=== PATIENT | male | born 1940 | race Caucasian/White ===

== ENCOUNTER 2020-01-24 14:34 | Emergency (ER) | payer MEDICARE, OTHER, SELFPAY ==
[2020-01-24 14:43] VITALS: BP 178/81; PULSE 66; RESP 18; TEMP 36.4; O2SAT 97; BMI 34.7
--- NOTE | 2020-01-24 14:57 | DI.RAD.S_ITS ---
PROCEDURE: XR LUMBAR SPINE 2-3V INDICATIONS: low back pain TECHNIQUE: 3 views of the lumbar spine were acquired. COMPARISON: [facility], , L-SPINE 2-3 VIEWS, 12/20/2015, 13:09. FINDINGS: Bones: 5 [id number] vertebrae are present. There is normal bony alignment. No vertebral body compression fractures. No suspicious bony lesions. Posterior fusion of L4-L5 is present, as before. Multilevel disc space narrowing and endplate osteophyte formation. Multilevel facet hypertrophy. Soft tissues: Overlying bowel gas pattern is normal. No suspicious soft tissue calcifications. IMPRESSION: 1. Postsurgical sequelae. 2. Multilevel degenerative disc and facet disease. 3. No acute fracture. No osseous lesion. If symptoms and/or clinical suspicion for pathology persist, further assessment with repeat, or advanced imaging (e.g., CT, MRI, or bone scan) may be helpful for further assessment. Dictated by: Jim Mayfield M.D. on 01/24/2020 at 14:21 Approved by: Jim Mayfield M.D. on 01/24/2020 at 14:22
[2020-01-24] MEDS: LIDOCAINE PATCH 1 EACH ADH..PATCH TOP (15:25)
[2020-01-24] MEDS: CYCLOBENZAPRINE 10 MG TABLET PO (15:25)
--- NOTE | 2020-01-24 15:39 | PC.NURSE ---
pt denies burning or tingling.
[2020-01-24] MEDS: HYDROCODONE/ACET 5/325 TABLET 1 TAB PO (16:04)
[2020-01-24 16:40] VITALS: BP 158/72; PULSE 61; RESP 17; O2SAT 98
[2020-01-24] MEDS: CYCLOBENZAPRINE 10 MG PREPACK 1 BOTTLE MISC (17:27)
[2020-01-24] MEDS: HYDROCODONE/ACET 5/325 PREPACK 1 BOTTLE MISC (17:27)
[2020-01-24 17:44] VITALS: BP 170/74; PULSE 70; RESP 16; O2SAT 98
--- NOTE | 2020-01-24 19:01 | ED.BACK ---
HPI - Back Pain/Injury <ADRIAN Gonzalez-BC - Last Filed: 01/24/20 19:06> General Chief Complaint: Back Pain/Injury Stated Complaint: TERRIBLE LBP ON RT SIDE Time Seen by Provider: 01/24/20 14:49 Source: patient Mode of arrival: Ambulatory Limitations: no limitations History of Present Illness HPI Narrative: The patient is a 79-year-old male former smoker with history of Noa fibrillation on Xarelto who presents with a chief complaint of right-sided lower back pain. He states has been present for at least 5 days, when he helped lift his [id number]. He denies any numbness or tingling denies any numbness of his groin. Took a leftover tramadol from back surgery, which was 3 years old earlier today. Presents to the emergency department due to continued pain. Denies any new incontinence of bowel bladder. Does state that he has history of a diskectomy several years ago in his L-spine. Related Data Home Medications Medication Instructions Recorded Confirmed dabigatran etexilate [Pradaxa] 150 mg PO HS #0 02/29/12 simvastatin [Zocor] 10 mg PO HS #0 02/29/12 lisinopril 10 mg PO HS #0 tab 11/28/12 amiodarone 100 mg PO HS #0 12/07/15 aspirin 81 mg PO HS #0 12/07/15 doxazosin [Cardura] 8 mg PO HS #0 12/07/15 nitroglycerin [Nitrostat] 0.4 mg SUBLINGUAL PRN PRN #0 12/07/15 venlafaxine 2 tab PO HS #0 12/07/15 Previous Rx's Medication Instructions Recorded ACETAMINOPHEN 325 - 650 mg PO Q4HP PRN #90 12/24/15 tab-cap dabigatran etexilate [Pradaxa] 150 mg PO QDAY #30 cap 12/24/15 cyclobenzaprine 10 mg PO TID PRN #14 tab 01/24/20 hydrocodone-acetaminophen [[place]] 1 tab PO Q4-6H PRN #10 tab 01/24/20 lidocaine 1 patch TOP DAILY PRN #1 each 01/24/20 Allergies Allergy/AdvReac Type Severity Reaction Status Date / Time No Known Drug Allergies Allergy Verified 01/24/20 15:24 Review of Systems <NASRIN Gonzalez - Last Filed: 01/24/20 19:06> Review of Systems Narrative: GENERAL: Denies chills, fatigue, malaise, fever, sweats. HEENT: Denies sinus pain, ear pain, sore throat, difficulty swallowing, dizziness. RESPIRATORY: Denies dyspnea, cough, wheezing, hemoptysis, sputum. CARDIOVASCULAR: Denies chest pain, palpitations, orthopnea, edema, GASTROINTESTINAL: Denies nausea, vomiting, abdominal pain, diarrhea, constipation, melena. : Denies dysuria, frequency, incontinence, hematuria, urinary retention. MUSCULOSKELETAL: See HPI SKIN: Denies rash, skin lesions, or other NEUROLOGIC: Denies weakness, headache, numbness, change in speech, confusion, seizures, incoordination. PSYCHIATRIC: No concerning psychosocial issues. 12 point review of systems is negative except for those stated above Patient History <NASRIN Gonzalez - Last Filed: 01/24/20 19:06> Social History Smoking Status: Former smoker Smoking Status: Former smoker Substance Use Type: does not use Exam <NASRIN Gonzalez - Last Filed: 01/24/20 19:06> Narrative Exam Narrative: GENERAL: This is a well-nourished, well-developed patient, in no acute distress HEAD: Atraumatic. Normocephalic. No temporal or scalp tenderness. EYES: Pupils equal round and reactive. Extraocular motions intact. No scleral icterus. No injection or drainage. ENT: Nose without bleeding, purulent drainage or septal hematoma. Wearing a mask. Airway patent. NECK: Trachea midline. No JVD or lymphadenopathy. Supple, nontender, no meningeal signs. CARDIOVASCULAR: Regular rate and rhythm RESPIRATORY: Clear to auscultation. Breath sounds equal bilaterally. No wheezes, rales, or rhonchi. No cough. No increased respiratory effort accessory muscle use. GASTROINTESTINAL: Abdomen soft, non-tender, nondistended. No hepato-splenomegaly, or palpable masses. No guarding. EXTREMITIES: No clubbing, cyanosis, or edema. No joint tenderness, effusion, or edema noted. BACK: No pain to C or T-spine midline palpation. CT and L-spine are without deformity or crepitance. No palpable step-offs or deformities. Diffuse tenderness to lumbar spine, with pain to palpation right paraspinal muscle. NEURO: AOx3. Sensation intact bilateral lower extremities. Stable gait. Strength is equal upper and lower extremities bilaterally. SKIN: No rash or erythema on visible skin Initial Vital Signs Initial Vital Signs: Vital Signs Temperature 97.5 F L 01/24/20 14:43 Pulse Rate 66 01/24/20 14:43 Respiratory Rate 18 01/24/20 14:43 Blood Pressure 178/81 H 01/24/20 14:43 Pulse Oximetry 97 01/24/20 14:43 <Nely Urena DO - Last Filed: 01/27/20 08:06> Initial Vital Signs Initial Vital Signs: Vital Signs Temperature 97.5 F L 01/24/20 14:43 Pulse Rate 66 01/24/20 14:43 Respiratory Rate 18 01/24/20 14:43 Blood Pressure 178/81 H 01/24/20 14:43 Pulse Oximetry 97 01/24/20 14:43 Scores <NASRIN Gonzalez - Last Filed: 01/24/20 19:06> GCS Sanchez coma scale eye opening: Spontaneous Sanchez coma scale verbal response: Orientated Sanchez coma scale motor response: Obey commands [place] coma scale total score: 15 Course <NASRIN Gonzalez - Last Filed: 01/24/20 19:06> Orders Ordered: Discontinued Medications Hydrocodone Bitart/Acetaminophen (Hydrocodone/Acet 5/325 Tablet) 1 tab PO NOW ONE Stop: 01/24/20 15:55 Last Admin: 01/24/20 16:04 Dose: 1 tab Documented by: KITTY Hydrocodone Bitart/Acetaminophen (Hydrocodone/Acet 5/325 Prepack) 1 bottle MISC SEEINSTR ONE Stop: 01/24/20 17:12 Last Admin: 01/24/20 17:27 Dose: 1 bottle Documented by: ZAYDA Cyclobenzaprine HCl (Cyclobenzaprine 10 Mg Tablet) 10 mg PO NOW ONE Stop: 01/24/20 14:58 Last Admin: 01/24/20 15:25 Dose: 10 mg Documented by: LUL Cyclobenzaprine HCl (Cyclobenzaprine 10 Mg Prepack) 1 bottle MISC SEEINSTR ONE Stop: 01/24/20 17:12 Last Admin: 01/24/20 17:27 Dose: 1 bottle Documented by: ZAYDA Lidocaine (Lidocaine Patch 1 Each Adh..Patch) 1 each TOP NOW ONE Stop: 01/24/20 14:58 Last Admin: 01/24/20 15:25 Dose: 1 each Documented by: LUL Vital Signs Vital signs: Vital Signs - 8 hr 01/24/20 14:43 01/24/20 16:40 01/24/20 17:44 Temperature 97.5 F L Pulse Rate 66 61 70 Respiratory Rate 18 17 16 Blood Pressure 178/81 H 158/72 H 170/74 H Pulse Oximetry 97 98 98 <Nely Urena DO - Last Filed: 01/27/20 08:06> Orders Ordered: Discontinued Medications Hydrocodone Bitart/Acetaminophen (Hydrocodone/Acet 5/325 Tablet) 1 tab PO NOW ONE Stop: 01/24/20 15:55 Last Admin: 01/24/20 16:04 Dose: 1 tab Documented by: KITTY Hydrocodone Bitart/Acetaminophen (Hydrocodone/Acet 5/325 Prepack) 1 bottle MISC SEEINSTR ONE Stop: 01/24/20 17:12 Last Admin: 01/24/20 17:27 Dose: 1 bottle Documented by: ZAYDA Cyclobenzaprine HCl (Cyclobenzaprine 10 Mg Tablet) 10 mg PO NOW ONE Stop: 01/24/20 14:58 Last Admin: 01/24/20 15:25 Dose: 10 mg Documented by: LUL Cyclobenzaprine HCl (Cyclobenzaprine 10 Mg Prepack) 1 bottle MISC SEEINSTR ONE Stop: 01/24/20 17:12 Last Admin: 01/24/20 17:27 Dose: 1 bottle Documented by: ZAYDA Lidocaine (Lidocaine Patch 1 Each Adh..Patch) 1 each TOP NOW ONE Stop: 01/24/20 14:58 Last Admin: 01/24/20 15:25 Dose: 1 each Documented by: LUL Vital Signs Vital signs: Vital Signs - 8 hr 01/24/20 14:43 01/24/20 16:40 01/24/20 17:44 Temperature 97.5 F L Pulse Rate 66 61 70 Respiratory Rate 18 17 16 Blood Pressure 178/81 H 158/72 H 170/74 H Pulse Oximetry 97 98 98 MDM - Back Pain/Injury <NASRIN Gonzalez - Last Filed: 01/24/20 19:06> Lab Data Labs: Urine Dip Bedside Urine Glucose Negative Bedside Urine Bilirubin - Negative Bedside Urine Ketone - Negative Urine Specific [place] 1.030 Bedside Urine Occult Blood - Negative Bedside Urine pH 6.0 Bedside Urine Protein + 30 Bedside Urine Urobilinogen - Negative Bedside Urine Nitrite - Negative Bedside Urine Leukocytes - Negative Esterase Imaging Data Lumbar spine x-ray: Radiologist's Impression: [address] [place] [id number] XRay Report Signed Patient: Maximo Cote RMR#: [id number] : 2Acct:[id number] Age/Sex: 79 / MDate of Service: 01/24/20 Loc: ED Accession Number: [id number] Procedure: XR lumbar spine 2-3V Ordering Provider: Alanna Renteria PROCEDURE: XR LUMBAR SPINE 2-3V INDICATIONS: low back pain TECHNIQUE: 3 views of the lumbar spine were acquired. COMPARISON: [facility]-SPINE 2-3 VIEWS, 12/20/2015, 13:09. FINDINGS: Bones: 5 [id number]-ikf-[id number] vertebrae are present. There is normal bony alignment. No vertebral body compression fractures. No suspicious bony lesions. Posterior fusion of L4-L5 is present, as before. Multilevel disc space narrowing and endplate osteophyte formation. Multilevel facet hypertrophy. Soft tissues: Overlying bowel gas pattern is normal. No suspicious soft tissue calcifications. IMPRESSION: 1. Postsurgical sequelae. 2. Multilevel degenerative disc and facet disease. 3. No acute fracture. No osseous lesion. If symptoms and/or clinical suspicion for pathology persist, further assessment with repeat, or advanced imaging (e.g., CT, MRI, or bone scan) may be helpful for further assessment. Dictated by: Jim Mayfield M.D. on 01/24/2020 at 14:21 Approved by: Jim Mayfield M.D. on 01/24/2020 at 14:22 [facility] Narrative Medical decision making narrative: The patient is a 71-year-old male who presents with a chief complaint of lower back pain for the past 5 days after lifting his izzfhu-ah-euf. Who denies any concerning symptoms such as saddle anesthesia, incontinence of bowel or bladder and states understanding that these are return precautions. X-rays taken help rule out acute compression fracture, which came back negative. The patient feels much improved after the above-stated therapies. Per epocrates, no interactions between prescribed medications and dofetilide or Xarelto. Encouraged follow-up with primary care provider in the next few days as well as come back to the ER for acute concerns such as incontinence bowel, incontinence of bladder, saddle anesthesia. Patient has no questions or concerns upon discharge and states understanding return precautions as well as follow-up care. <Nely Urena DO - Last Filed: 01/27/20 08:06> Lab Data Labs: Urine Dip Bedside Urine Glucose Negative Bedside Urine Bilirubin - Negative Bedside Urine Ketone - Negative Urine Specific [place] 1.030 Bedside Urine Occult Blood - Negative Bedside Urine pH 6.0 Bedside Urine Protein + 30 Bedside Urine Urobilinogen - Negative Bedside Urine Nitrite - Negative Bedside Urine Leukocytes - Negative Esterase Discharge Plan Departure Patient Disposition: Home Clinical Impression: Strain of lumbar region Qualifiers: Encounter type: initial encounter Qualified Code(s): S39.012A - Strain of muscle, fascia and tendon of lower back, initial encounter Acute back pain Qualifiers: Back pain location: low back pain Back pain laterality: right Sciatica presence: without sciatica Qualified Code(s): M54.5 - Low back pain Instructions: DI for Low Back Pain, DI for Back Spasm, DI for Back Strain or Sprain Activity Restrictions/Additional Instructions: Thank you for trusting us with your care today. As discussed, I would like you to follow-up with primary care provider in the next few days. I sent 2 prescriptions to the [facility] pharmacy in [place]. I have given you another printed pain medicine prescription. I have given you a prescription of a narcotic for pain. Be aware that this can be constipating and sedating. I encouraged taking with a stool softener, pushing fluids and fiber. Do not take and drive, operate heavy machinery, etc. Do not combine it with any other sedating substances such as alcohol. Please be aware that the cyclobenzaprine or muscle relaxer can be sedating as well. Do not take that drive. The lidocaine patches can be on for 12 hours and then remove for 12 hours. Do not use heat over the lidocaine patches. Please come back to the emergency department for any acute concerns including incontinence of bowel, incontinence of bladder or numbness in your groin Prescriptions: New cyclobenzaprine 10 mg tablet 10 mg PO TID PRN (Reason: muscle spasm) Qty: 14 RF: 0 hydrocodone-acetaminophen [[place]] 5-325 mg tablet 1 tab PO Q4-6H PRN (Reason: pain) Qty: 10 RF: 0 lidocaine 5 % adhesive patch,medicated 1 patch TOP DAILY PRN (Reason: pain) Qty: 1 RF: 0 No Action simvastatin [Zocor] 10 MG tablet 10 mg PO HS Qty: 0 RF: 0 dabigatran etexilate [Pradaxa] 150 MG capsule 150 mg PO HS Qty: 0 RF: 0 lisinopril 10 MG tablet 10 mg PO HS Qty: 0 RF: 0 doxazosin [Cardura] 8 MG tablet 8 mg PO HS Qty: 0 RF: 0 aspirin 81 MG tablet,delayed release (DR/EC) 81 mg PO HS Qty: 0 RF: 0 amiodarone 200 MG tablet 100 mg PO HS Qty: 0 RF: 0 venlafaxine 37.5 MG tablet 2 tab PO HS Qty: 0 RF: 0 nitroglycerin [Nitrostat] 0.4 MG tablet, sublingual 0.4 mg Sublingual PRN PRNQty: 0 RF: 0 ACETAMINOPHEN 325 - 650 mg PO Q4HP PRNQty: 90 RF: 0 dabigatran etexilate [Pradaxa] 150 MG capsule 150 mg PO QDAY Qty: 30 RF: 0 Referrals: Jeremi Tavarez DO [Primary Care Provider] - <Nely Urena DO - Last Filed: 01/27/20 08:06> Cosign ED Attending Guillermoature Attestation: I was immediately available in the department for consultation. Documentation has been reviewed. I agree with assessment and plan.
== END 2020-01-24 17:44 | disposition home or self-care (01) ==
PROVIDERS: Emergency Provider Nurse Practitioner Family; PCP Family Medicine
DX: S39.012A Strain of muscle, fascia and tendon of lower back, initial encounter (principal); X50.9XXA Other and unspecified overexertion or strenuous movements or postures, initial encounter; Z79.01 Long term (current) use of anticoagulants; I48.91 Unspecified atrial fibrillation
CPT/HCPCS: 72100; 81003; 99283

== ENCOUNTER → 2020-06-28 12:18 | Outpatient (CLI) | payer MEDICARE, OTHER, SELFPAY ==
--- NOTE | 2020-06-28 12:22 | DI.CT.S_ITS ---
PROCEDURE: CT ABDOMEN PELVIS WO/W CON INDICATIONS: Other microscopic hematuria TECHNIQUE: Optional 5 mm thick noncontrast images acquired from the diaphragm to the symphysis pubis. After the administration of intravenous contrast, 5 mm thick images acquired from the diaphragm to the symphysis pubis after a 10-minute delay. 2 mm thick coronal and sagittal reformats were then performed of the kidneys and ureters. For radiation dose reduction, the following was used: automated exposure control, adjustment of mA and/or kV according to patient size. COMPARISON: US, RENAL OR RETROPERITONEAL LIMIT, 05/06/2013, 11:00. FINDINGS: Image quality: Excellent. Lung bases: Lung bases are clear. Heart size is normal. Urinary system: Both kidneys are normal in size, without hydronephrosis or nephrolithiasis on pre-contrast images. No perinephric fat stranding. There is normal bilateral renal enhancement. Renal calyces appear normal in morphology when filled with contrast. Opacified portions of both ureters demonstrate normal caliber. Bladder wall thickness is normal. No calcified bladder stones. Other solid organs: Liver is normal in size and enhancement. Gallbladder is not seen and presumably was previously resected. . Biliary system is non dilated. Pancreas enhances normally. Spleen is at or just above the upper limits of normal in size and normal in enhancement. No adrenal nodules. Peritoneum and bowel: Bowel loops demonstrate normal wall thickness and caliber. No free fluid or air. Nodes and vessels: No retroperitoneal or mesenteric adenopathy by size criteria. Aorta and inferior vena cava are normal in size. Abdominal wall: No ventral hernias. Pelvis: No pathologic free pelvic fluid. No inguinal hernias or adenopathy. The prostate appears mildly enlarged in size. Bones: No suspicious bony lesions. No vertebral body compression fractures. IMPRESSION: A urinary tract stone is not found, a renal cortical mass or urothelial mass is not identified. Mild prosthetic enlargement. A definite source of reported micro hematuria is not seen. Dictated by: Jimbo Guardado M.D. on 06/28/2020 at 14:30 Approved by: Jimbo Guardado M.D. on 06/28/2020 at 14:49
== END ==
PROVIDERS: PCP Physician Assistant; Referring Provider Urology; Visit Provider Urology
DX: R31.29 Other microscopic hematuria (principal); N40.0 Benign prostatic hyperplasia without lower urinary tract symptoms
CPT/HCPCS: 74178

== ENCOUNTER → 2020-08-03 11:47 | Outpatient (CLI) | payer MEDICARE, OTHER, SELFPAY ==
--- NOTE | 2020-08-03 | DI.MRI.S_ITS ---
PROCEDURE: MR HEAD/BRAIN WO CON INDICATIONS: IMBALANCE, MILD COGNITIVE IMPAIRMENT TECHNIQUE: Non-contrast axial T1 spin echo, axial T2 fast spin echo, sagittal and axial FLAIR, coronal T2 fast spin echo, axial gradient echo, axial diffusion and ADC through the brain. COMPARISON: [facility], CT, HEAD W&WO CONTRAST, 07/20/2016, 13:54. FINDINGS: Image quality: Excellent. CSF spaces: Ventricles appear prominent, possibly disproportionate to the convexity sulci (raising the possibility of normal pressure hydrocephalus), although this is unchanged since 07/20/16. Basal cisterns are patent. No extra-axial fluid collections. Brain: No intracranial bleeds or mass effects. There is cerebral volume loss for age. There are periventricular and deep white matter chronic small vessel ischemic changes. Brainstem appears normal. Diffusion-weighted images show no acute ischemic insults. No chronic ischemic insults. Normal intravascular flow voids are present. Skull and face: Post right frontal craniotomy changes Sinuses: Sinuses and mastoids are clear. IMPRESSION: No evidence of acute ischemia No acute signal abnormality Ventriculomegaly as discussed above, which raises the question of normal pressure hydrocephalus however only in the appropriate clinical context. Of note, this is unchanged appearance dating back to 07/20/16. Diffuse small white matter changes, probably represent chronic microvascular ischemic disease, versus statistically less likely demyelination or other infectious, inflammatory, neurodegenerative etiology, technically nonspecific. Dictated by: Jeromy Menezes M.D. on 08/03/2020 at 13:12 Approved by: Jeromy Menezes M.D. on 08/03/2020 at 13:18
== END ==
PROVIDERS: PCP Physician Assistant; Referring Provider Psychiatry & Neurology Neurology; Visit Provider Psychiatry & Neurology Neurology
DX: G93.89 Other specified disorders of brain (principal); G31.84 Mild cognitive impairment of uncertain or unknown etiology; R26.89 Other abnormalities of gait and mobility
CPT/HCPCS: 70551

== ENCOUNTER 2020-10-01 20:31 | Emergency (ER) | payer MEDICARE, OTHER, SELFPAY ==
[2020-10-01] VITALS (7 sets, daily range): BP systolic 115–148; BP diastolic 67–100; PULSE 106–120; RESP 14–22; TEMP 37.3; O2SAT 92–94; BMI 35.2
[2020-10-01 21:05] LABS: COVID19 -Nasal RAPID POSITIVE (Negative)
--- NOTE | 2020-10-01 21:43 | ED.FALL ---
HPI - Fall General Chief Complaint: Fall Stated Complaint: Weakness Time Seen by Provider: 10/01/20 21:31 Source: patient and EMS Mode of arrival: EMS History of Present Illness HPI Narrative: Patient is a 79-year-old male who is brought in by EMS for evaluation of weakness. He has been immunized with the [employer] vaccine against COVID however he did have an exposure to someone who was positive for COVID. He states that earlier today he got up from sitting in his chair and he generally was not feeling very well and then he became somewhat lightheaded. He denies any chest pain or shortness of breath. The time my evaluation he does reports improvement of symptoms. He also states that he has not had much to eat today was could have contributed to some of his symptoms. Does report a cough. He is on anticoagulation. He did not hit his head. He was unable to get up after he fell which is why EMS was called Related Data Home Medications Medication Instructions Recorded Confirmed dabigatran etexilate 150 mg 150 mg PO HS #0 02/29/12 capsule (Pradaxa) simvastatin 10 mg tablet (Zocor) 10 mg PO HS #0 02/29/12 lisinopril 10 mg tablet 10 mg PO HS #0 tab 11/28/12 amiodarone 200 mg tablet 100 mg PO HS #0 12/07/15 aspirin 81 mg tablet,delayed 81 mg PO HS #0 12/07/15 release doxazosin 8 mg tablet (Cardura) 8 mg PO HS #0 12/07/15 nitroglycerin 0.4 mg sublingual 0.4 mg SUBLINGUAL PRN PRN #0 12/07/15 tablet (Nitrostat) venlafaxine 37.5 mg tablet 2 tab PO HS #0 12/07/15 dofetilide 125 mcg capsule mcg 10/01/20 rivaroxaban 20 mg tablet (Xarelto) mg 10/01/20 Previous Rx's Medication Instructions Recorded ACETAMINOPHEN 325 - 650 mg PO Q4HP PRN #90 12/24/15 tab-cap dabigatran etexilate 150 mg 150 mg PO QDAY #30 cap 12/24/15 capsule (Pradaxa) cyclobenzaprine 10 mg tablet 10 mg PO TID PRN #14 tab 01/24/20 hydrocodone 5 mg-acetaminophen 325 1 tab PO Q4-6H PRN #10 tab 01/24/20 mg tablet ([place]) lidocaine 5 % topical patch 1 patch TOP DAILY PRN #1 each 01/24/20 Allergies Allergy/AdvReac Type Severity Reaction Status Date / Time No Known Drug Allergies Allergy Verified 01/24/20 15:24 Review of Systems Constitutional Constitutional: Reports fatigue, Denies fever(s), Denies headache(s) and Reports malaise Eyes Eyes: Reports system reviewed and no additional complaints, except as documented ENT Ears, Nose, Mouth, and Throat: Denies headache(s) Cardiovascular Cardiovascular: Denies chest pain and Denies dyspnea Respiratory Respiratory: Reports cough and Denies dyspnea Gastrointestinal Gastrointestinal: Reports as per HPI Musculoskeletal Musculoskeletal: Reports system reviewed and no additional complaints, except as documented Integumentary/Breasts Skin/Breast: Reports system reviewed and no additional complaints, except as documented Neurologic Neurologic: Denies headache(s) Endocrine Endocrine: Reports fatigue Hematologic/Lymphatic On Anticoagulants: Yes Patient History Medical History Atrial fibrillation Diabetes Hypertension Social History Smoking Status: Former smoker Smoking Status: Former smoker Substance Use Type: does not use Exam Initial Vital Signs Initial Vital Signs: Vital Signs Temperature 99.1 F 10/01/20 20:32 Pulse Rate 109 H 10/01/20 20:32 Respiratory Rate 22 10/01/20 20:32 Blood Pressure 124/67 10/01/20 20:32 Pulse Oximetry 94 10/01/20 20:32 Const General: cooperative and healthy appearing [facility] Head: normal to inspection and normocephalic Eyes General: appearance normal, both eyes and all related structures Resp Effort & Inspection: normal respiratory effort Auscultation: clear to auscultation bilaterally Cardio Rate: regular rate Skin General: no rashes or lesions noted Neuro General: patient alert, patient awake, patient oriented x3 and moves all extremities Extrem General: normal to inspection and capillary refill normal Psych Appearance: grossly normal and well kempt Course Orders Ordered: ED Orders 10/01/20 20:37 COVID19 -Nasal swab/Pre-Proc Stat Vital Signs Vital signs: Vital Signs - 8 hr 10/01/20 22:30 10/01/20 23:01 10/01/20 23:30 Pulse Rate 112 H 116 H 110 H Respiratory Rate 22 19 17 Blood Pressure 148/86 H 135/67 136/91 H Pulse Oximetry 94 94 93 MDM - Fall Lab Data Labs: Lab Results 10/01/20 Range/Units 20:37 SARS-CoV-2 (PCR) Positive H (Negative) [facility] Narrative Medical decision making narrative: Patient was positive for COVID-19. He is not hypoxic. Has clear lung exam. He was given something the eat and felt much better afterwards. Indication for admission to hospital. Low suspicion for stroke. Low suspicion for seizure. Low suspicion for coronary event. He was given return precautions and follow-up instructions. He expressed understanding and agreement. Discharge Plan Departure Patient Disposition: Home Clinical Impression: COVID-19 Instructions: DI for COVID-19 (Suspected or Confirmed ) Activity Restrictions/Additional Instructions: You were positive for COVID-19. You need to now quarantine yourself for the next 10 days and until you have been symptom free for 24 hours. Contact your primary doctor for follow-up. Continue to take all of your medications as directed. Return to the emergency department for any new or worsening symptoms Prescriptions: No Action simvastatin [Zocor] 10 MG tablet 10 mg PO HS Qty: 0 RF: 0 dabigatran etexilate [Pradaxa] 150 MG capsule 150 mg PO HS Qty: 0 RF: 0 lisinopril 10 MG tablet 10 mg PO HS Qty: 0 RF: 0 doxazosin [Cardura] 8 MG tablet 8 mg PO HS Qty: 0 RF: 0 aspirin 81 MG tablet,delayed release (DR/EC) 81 mg PO HS Qty: 0 RF: 0 amiodarone 200 MG tablet 100 mg PO HS Qty: 0 RF: 0 venlafaxine 37.5 MG tablet 2 tab PO HS Qty: 0 RF: 0 nitroglycerin [Nitrostat] 0.4 MG tablet, sublingual 0.4 mg Sublingual PRN PRNQty: 0 RF: 0 ACETAMINOPHEN 325 - 650 mg PO Q4HP PRNQty: 90 RF: 0 dabigatran etexilate [Pradaxa] 150 MG capsule 150 mg PO QDAY Qty: 30 RF: 0 dofetilide 125 mcg capsule RF: 0 Xarelto 20 mg tablet RF: 0 cyclobenzaprine 10 mg tablet 10 mg PO TID PRN (Reason: muscle spasm) Qty: 14 RF: 0 hydrocodone-acetaminophen [[place] Cl[place]] 5-325 mg tablet 1 tab PO Q4-6H PRN (Reason: pain) Qty: 10 RF: 0 lidocaine 5 % adhesive patch,medicated 1 patch TOP DAILY PRN (Reason: pain) Qty: 1 RF: 0 Referrals: Erika Pedraza PA-C [Primary Care Provider] -
== END 2020-10-01 23:58 | disposition home or self-care (01) ==
PROVIDERS: Emergency Provider Emergency Medicine; PCP Physician Assistant
DX: U07.1 COVID-19 (principal)
CPT/HCPCS: 87635; 99282; 99283; C9803

== ENCOUNTER → 2021-06-22 15:57 | Outpatient (CLI) | payer MEDICARE, OTHER, SELFPAY ==
--- NOTE | 2021-06-22 16:01 | DI.MRI.S_ITS ---
PROCEDURE: MR HEAD/BRAIN WO CON INDICATIONS: Other amnesia TECHNIQUE: Non-contrast axial T1 spin echo, axial T2 fast spin echo, sagittal and axial FLAIR, coronal T2 fast spin echo, axial gradient echo, axial diffusion and ADC through the brain. COMPARISON: [facility], CT, HEAD W&WO CONTRAST, 07/20/2016, 13:54. [facility], CT, HEAD WITHOUT CONTRAST, 04/04/2016, 8:53. [facility], MR, STROKE PROTOCOL, 12/23/2015, 16:11. FINDINGS: Image quality: Excellent. CSF spaces: Enlarged ventricles are stable compared to prior MRI. Basal cisterns are patent. No extra-axial fluid collections. Brain: No intracranial bleeds or mass effects. Sequela of prior placement with subsequent removal of interventricular catheter via right frontal approach is stable compared to prior MRI. There is mild cerebral volume loss for age. There are minimal periventricular and deep white matter chronic small vessel ischemic changes. Brainstem appears normal. Diffusion-weighted images show no acute ischemic insults. No chronic ischemic insults. Normal intravascular flow voids are present. Skull and face: Calvarial bone marrow is normal in signal. Orbits are normal. Sinuses: Sinuses and mastoids are clear. IMPRESSION: 1. No acute intracranial disease process. 2. Ventriculomegaly which could be due to central volume loss versus normal pressure hydrocephalus. Recommend correlation with clinical data. 3. No areas of acute or chronic infarction. 4. Diffuse cerebral volume loss. 5. Minimal periventricular and subcortical white matter chronic microvascular ischemic change. Dictated by: Sangeetha Porras MD, PhD on 06/23/2021 at 10:00 Approved by: Sangeetha Porras MD, PhD on 06/23/2021 at 10:11
== END ==
PROVIDERS: PCP Physician Assistant; Referring Provider Psychiatry & Neurology Neurology; Visit Provider Psychiatry & Neurology Neurology
DX: G93.89 Other specified disorders of brain (principal); R41.3 Other amnesia
CPT/HCPCS: 70551

== ENCOUNTER 2021-08-16 12:30 | Outpatient (RCR) | payer MEDICARE, OTHER, SELFPAY ==
--- NOTE | 2021-06-19 15:12 | ST.OPIE ---
Visit Care Team Role Provider Type Erika Pedraza PA-C Primary Care Provider Non-Staff Specialty: Internal Medicine [address]: [address] [place] [address], [id number] Email: [email or web address] Man Templeton MD Attending Provider Non-Staff Referring Provider Specialty: Neurology Address: [facility] [place], [address] Email: Speech-Language Pathology Initial Evaluation ASSISTANT FACILITY MANAGER Adult Cognitive Linguistic Eval Start: 06/19/21 12:30 Freq: Status: Active Protocol: Document 06/19/21 12:32 JOANNE (Rec: 06/19/21 12:46 JOANNE [id number]) Adult Cognitive Linguistic Evaluation Session Time Visit Start Time 12:30 Visit Stop Time 13:30 Total Visit Minutes 60 Visit Information Visit Number Initial Eval - 03/20 Plan of Care Dates 06/19/21 - 08/13/21 Insurance Information Medicare; for Life Referral Referring Provider Dr. Man Templeton Reason for Referral Other amnesia Setting Assessment Location Outpatient Care Visit Type Note Type Initial evaluation Next Note Type Next Note Type Treatment Note Patient Information Identification Type Name,ID Card Patient History The pt is a 80-yr-old male who goes by Bill and is s/p COVID -19 from July to Nov 2020. Prior to COVID, he experienced mild WFDs and cognitive changes that seemed appropriate to his age. These worsened significantly after COVID and continue to be problematic, including difficulty recalling names of familiar people, WFDs, missing appts despite having them recorded in his phone, and trouble remembering things he has heard or read. He also loses his train of thought while talking: I can't keep my thoughts up with my mouth. He also reported changes in handwriting since ~3 yrs ago, now with poor legibility. Upon matthieu COVID-19, the pt was hospitalized for ~60 days, primarily at [facility], including inpatient rehab. At no time was he ventilated. The pt also c/o frequent dizziness and associated falls off and on for the last couple of years. He reported hitting his head sometimes but denied resultant cognitive or communication changes. He is scheduled to begin PT at this clinic July 12. The pt lives with his who is my memory. She assists with appts, meds, etc. The pt was recently diagnosed with sleep apnea and is scheduled for CPAP fitting June 22. Language(s) Spoken in the Home [place] Education Level 2 yrs college Occupation Status Retired Hearing Hearing Level Needs Hearing Check Vision Comments Uses reading glasses Previous Therapy Previous Speech-Language Therapy Yes History of Therapy Limited therapy while in hospital in [place] Subjective Patient Report The pt arrived on time and provided case history supplemental to medical records. Informal Assessment Receptive Language Normal Yes Expressive Language Normal Yes: WFL for conversation with occ WFD Pragmatic Language Normal Yes Speech Normal Yes Cognition Normal Pending assessment completion Formal Assessment Standardized Test/Screener Type Scales of Cognitive and Communicative Ability (SCCAN) Administration Initiated Results Assessment completed with exception of writing tasks. Oral Expression: 90% Orientation: 100% Memory: 68% Speech Comprehension: 100% Reading Comprehension: 83% Writing: Incomplete Attention: Incomplete Problem Solvin% Findings/Results Language Function Within functional limits Cognitive Function Mild-moderately impaired Findings The pt presents with mild- moderate memory impairment. Additional cognitive findings, and evaluation of written expression, are pending completion of standardized assessment. Handwriting was assessed informally via intake forms. Legibility was 72%, and handwriting was shaky with occasional misspellings. The pt participated effectively in egocentric conversation with one episode of WFDs. Confrontational naming was diminished: 7 animals and 4 words beginning with F were named in 30 seconds each. Cognitive Communication Deficits Self-awareness of Cognitive- Predictive awareness (able to Communication Deficits predict problem; impact of impairments) Concomitant Factors Comment Possible hearing loss; sleep apnea Impact on Functioning Activity Limits/Particip.Rest. Mild: General Tasks and Demands Household Tasks Mod: Interpersonal Interactions Community Safety Risks Mod: Managing Medication Prognosis Prognosis Good Based on Family support,Duration of symptoms/severity,Time since onset Plan of Care Speech-Language Treatment Yes Frequency 1x/wk Duration 12 wks Patient/Caregiver Education Described results of evaluation,Patient expressed understanding of evaluation, Patient expressed agreement with goals and treatment plans ,Patient requires further education/training Short Term Goals 1. The pt will participate in completion of assessment to guide POC. 2. With ASSISTANT FACILITY MANAGER/spouse collaboration as needed, the pt will develop external memory tools (e.g., calendar, memory book, etc.) to increase his ability to recall functional information and fulfill personal/family responsibilities. 3. The pt will demonstrate understanding of internal memory strategies by completing structured memory tasks (e.g., recall a list of items, novel information, etc. ) with 80% accuracy to improve memory skills and ability to perform functional tasks independently. 4. The pt will name 12 items in a concrete category in 60 sec across 3 trials to improve word recall skills. 5. Following Semantic Features Analysis structure, the pt will describe aspects of objects, people, actions, etc. to improve word recall skills in functional conversations. Retail Account Specialist Goals 1. Using external memory tools as needed, the pt will fulfill personal and family responsibilities (e.g., attend appts, take medications) with minimal spouse assistance to increase independence and reduce caregiver burden. 2. The pt will use word recall strategies with minimal prompts in 80% of opportunities to reduce conversation breakdowns and increase participation in communicative activities. 3. Using strategies and external tools as needed, the pt will demonstrate recall of functional information and words WFL, as measured by pt/ spouse report and clinician judgment.
--- NOTE | 2021-06-28 16:05 | ST.OPTN ---
Visit Care Team Role Provider Type Erika Pedraza PA-C Primary Care Provider Non-Staff Address: [address] [place] [address], [id number] Man Templeton MD Attending Provider Non-Staff Referring Provider Address: [place], [address] CONSUMER SERVICES ADVISOR Treatment Note CONSUMER SERVICES ADVISOR Treatment Note Start: 06/19/21 12:30 Freq: Status: Active Protocol: Document 06/28/21 10:27 JOANNE (Rec: 06/28/21 10:28 JOANNE [id number]) Speech Pathology Treatment Note Session Time Visit Start Time 09:30 Visit Stop Time 10:15 Total Visit Minutes 45 Visit Information Plan of Care Dates 06/19/21 - 08/13/21 Insurance Information Medicare; [employer] General Information Patient History The pt is a 80-yr-old male who goes by Bill and is s/p COVID -19 from July to Nov 2020. Prior to COVID, he experienced mild WFDs and cognitive changes that seemed appropriate to his age. These worsened significantly after COVID and continue to be problematic, including difficulty recalling names of familiar people, WFDs, missing appts despite having them recorded in his phone, and trouble remembering things he has heard or read. He also loses his train of thought while talking: I can't keep my thoughts up with my mouth. He also reported changes in handwriting since ~3 yrs ago, now with poor legibility. Upon matthieu COVID-19, the pt was hospitalized for ~60 days, primarily at [facility], including inpatient rehab. At no time was he ventilated. The pt also c/o frequent dizziness and associated falls off and on for the last couple of years. He reported hitting his head sometimes but denied resultant cognitive or communication changes. He is scheduled to begin PT at this clinic July 12. The pt lives with his who is my memory. She assists with appts, meds, etc. The pt was recently diagnosed with sleep apnea and is scheduled for CPAP fitting June 22. Subjective Observations/Patient Presentation The pt arrived on time. No new complaints. Chief Complaint(s) Cognitive Patient Knowledge/Awareness of CONSUMER SERVICES ADVISOR Role Good in Treatment Objective Short Term Goals 1. The pt will participate in completion of assessment to guide POC. GOAL MET 2. With CONSUMER SERVICES ADVISOR/spouse collaboration as needed, the pt will develop external memory tools (e.g., calendar, memory book, etc.) to increase his ability to recall functional information and fulfill personal/family responsibilities. 3. The pt will demonstrate understanding of internal memory strategies by completing structured memory tasks (e.g., recall a list of items, novel information, etc. ) with 80% accuracy to improve memory skills and ability to perform functional tasks independently. 4. The pt will name 12 items in a concrete category in 60 sec across 3 trials to improve word recall skills. 5. Following Semantic Features Analysis structure, the pt will describe aspects of objects, people, actions, etc. to improve word recall skills in functional conversations. Home Visit Field Care Manager Goals 1. Using external memory tools as needed, the pt will fulfill personal and family responsibilities (e.g., attend appts, take medications) with minimal spouse assistance to increase independence and reduce caregiver burden. 2. The pt will use word recall strategies with minimal prompts in 80% of opportunities to reduce conversation breakdowns and increase participation in communicative activities. 3. Using strategies and external tools as needed, the pt will demonstrate recall of functional information and words WFL, as measured by pt/ spouse report and clinician judgment. Treatment Activities Completed SCCAN assessment with the following scores: Total Raw Score: 78; 1%ile; SCCAN Index 54; Degree of Severity: Mild Oral Expression: 90% Orientation: 100% Memory: 68% Speech Comprehension: 100% Reading Comprehension: 83% Writin% Attention: 56% Problem Solvin% The pt's writing was noted to be legible but inconsistent in form with occ spelling errors , some self-corrected by pt. The pt reported decline in penmanship and spelling since having COVID-19. Reviewed findings and POC with pt, and initiated education in memory and attention function, including impact of sensory input. Initiated identification of current external memory tools the pt is using. The pt identified difficulty tracking meds and expressed being frustrated with the number of medications he is taking and some of their side effects and questioned if some of the medications should not be taken together. He reported that he will sometimes stop taking medications because of the side effects without discussion with his doctor. CONSUMER SERVICES ADVISOR strongly advised the pt to discuss with his doctor before making any changes in medication intake. CONSUMER SERVICES ADVISOR recommended the pt discuss his medication list with his MD or Pharmacist to better understand why they are being prescribed, to increase understanding and confidence in their compatibility, and to investigate if those with unpleasant side effects can be replaced with an equivalent medication without such side effects. The pt verbalized understanding and agreement with all of these recommendations, which were provided in writing for recall and carryover. He expressed intention to discuss his med list with his Pharmacist first , then his MD. Assessment Patient Response to Treatment Good Impairments Identified Attention,Cognitive-Linguistic Skills,Memory - Short Term, Memory - Working,Written Expression Assessment of Overall Progress Unchanged Assessment of Improvement The pt presents with mild cognitive communication impairment with moderate impairments in the areas of memory and attention. The pt's writing legibility was noted to be inconsistent with occ spelling errors, which is not the pt's baseline. The pt was responsive to all education provided today and agreeable to POC. Reviewed with Patient Goals,Progress Being Made,Home Exercise Program Patient/Caregiver Understanding Good Plan Amount of Therapy Recommended 6 Months Frequency of Treatment Once a Week Length of Session 45 Minutes Treatment Emphasis Next Session External memory tools; active listening skills to increase attention Therapeutic Contents Client Education,Cognitive- Linguistic Training,Home Exercise Program,Written Expression Provided Patient/Caregiver Instruction Home Exercise Program,Plan of Care,Questions/Concerns Therapy Recommendations Continue with Current Program
--- NOTE | 2021-07-12 18:08 | ST.OPTN ---
Visit Care Team Role Provider Type Erika Pedraza PA-C Primary Care Provider Non-Staff Address: [address] [place] [address], [address] Man Templeton MD Attending Provider Non-Staff Referring Provider Address: [place], [address] WELL TESTER Treatment Note WELL TESTER Treatment Note Start: 06/19/21 12:30 Freq: Status: Active Protocol: Document 07/12/21 17:51 [facility] (Rec: 07/12/21 17:55 [facility] [id number]) Speech Pathology Treatment Note Session Time Visit Start Time 13:30 Visit Stop Time 14:25 Total Visit Minutes 55 Visit Information Visit Number 3 Plan of Care Dates 06/19/21 - 08/13/21 Insurance Information Medicare; for Life Setting Treatment Setting Outpatient Care Next Note Type Next Note Type Treatment Note General Information Patient History The pt is a 80-yr-old male who goes by [employer] and is s/p COVID -19 from July to Nov 2020. Prior to COVID, he experienced mild WFDs and cognitive changes that seemed appropriate to his age. These worsened significantly after COVID and continue to be problematic, including difficulty recalling names of familiar people, WFDs, missing appts despite having them recorded in his phone, and trouble remembering things he has heard or read. He also loses his train of thought while talking: I can't keep my thoughts up with my mouth. He also reported changes in handwriting since ~3 yrs ago, now with poor legibility. Upon matthieu COVID-19, the pt was hospitalized for ~60 days, primarily at [facility], including inpatient rehab. At no time was he ventilated. The pt also c/o frequent dizziness and associated falls off and on for the last couple of years. He reported hitting his head sometimes but denied resultant cognitive or communication changes. He is scheduled to begin PT at this clinic July 12. The pt lives with his who is my memory. She assists with appts, meds, etc. The pt was recently diagnosed with sleep apnea and is scheduled for CPAP fitting June 22. Subjective Observations/Patient Presentation The pt arrived on time. No new complaints. Chief Complaint(s) Cognitive Patient Knowledge/Awareness of WELL TESTER Role Good in Treatment Objective Short Term Goals 1. The pt will participate in completion of assessment to guide POC. GOAL MET 2. With WELL TESTER/spouse collaboration as needed, the pt will develop external memory tools (e.g., calendar, memory book, etc.) to increase his ability to recall functional information and fulfill personal/family responsibilities. 3. The pt will demonstrate understanding of internal memory strategies by completing structured memory tasks (e.g., recall a list of items, novel information, etc. ) with 80% accuracy to improve memory skills and ability to perform functional tasks independently. 4. The pt will name 12 items in a concrete category in 60 sec across 3 trials to improve word recall skills. 5. Following Semantic Features Analysis structure, the pt will describe aspects of objects, people, actions, etc. to improve word recall skills in functional conversations. Proof Sorter Goals 1. Using external memory tools as needed, the pt will fulfill personal and family responsibilities (e.g., attend appts, take medications) with minimal spouse assistance to increase independence and reduce caregiver burden. 2. The pt will use word recall strategies with minimal prompts in 80% of opportunities to reduce conversation breakdowns and increase participation in communicative activities. 3. Using strategies and external tools as needed, the pt will demonstrate recall of functional information and words WFL, as measured by pt/ spouse report and clinician judgment. Treatment Activities Attempted to identify functional needs/goals. Pt is only using the patch prescribed by Neurologist; has discontinued all other medication. Does not feel comfortable talking to his MD about meds. Targets identified: Train use of Yessenia for phone calendar and texting; reading and understanding Scripture; strategies to recall why he is calling someone, why he came into a room, details of conversation. Initiated education RE attention and memory. Initiated training in say- aloud strategy to recall why he came in a room and who/why his is going to call. Assessment Patient Response to Treatment Good Assessment of Overall Progress Unchanged Assessment of Improvement The pt presented with a depressed disposition today and had difficulty identifying areas of challenge. He continues to be concerned about side effects of medication and, as a result, is not taking medication as prescribed. He may benefit from assistance in talking about this with his MD; will address at next session. He was responsive to education about using Yessenia as an alternative to manually entering information into his phone and eager to improve his skills at comprehending and discussing Scripture, which will be addressed at next session. Reviewed with Patient Goals,Progress Being Made,Home Exercise Program Patient/Caregiver Understanding Good Plan Amount of Therapy Recommended 6 Months Frequency of Treatment Once a Week Length of Session 45 Minutes Treatment Emphasis Next Session Read and comprehend Scripture (NT) Therapeutic Contents Client Education,Cognitive- Linguistic Training,Home Exercise Program,Written Expression Provided Patient/Caregiver Instruction Home Exercise Program,Plan of Care,Questions/Concerns Therapy Recommendations Continue with Current Program
--- NOTE | 2021-07-19 17:21 | ST.OPTN ---
Visit Care Team Role Provider Type Erika Pedraza PA-C Primary Care Provider Non-Staff Address: [address] [place] [address], [id number] Man [place] MD Attending Provider Non-Staff Referring Provider [place]: [place], [address] TREE FRUIT AND NUT FARMING SUPERVISOR Treatment Note TREE FRUIT AND NUT FARMING SUPERVISOR Treatment Note Start: 06/19/21 12:30 Freq: Status: Active Protocol: Document 07/19/21 18:15 [facility] (Rec: 07/19/21 18:22 [facility] [id number]) Speech Pathology Treatment Note Session Time Visit Start Time 13:40 Visit Stop Time 14:20 Total Visit Minutes 40 Visit Information Visit Number 4 Plan of Care Dates 06/19/21 - 08/13/21 Insurance Information Medicare; [facility] Setting Treatment Setting Outpatient Care Next Note Type Next Note Type Treatment Note General Information Patient History The pt is a 80-yr-old male who goes by [employer] and is s/p COVID -19 from July to Nov 2020. Prior to COVID, he experienced mild WFDs and cognitive changes that seemed appropriate to his age. These worsened significantly after COVID and continue to be problematic, including difficulty recalling names of familiar people, WFDs, missing appts despite having them recorded in his phone, and trouble remembering things he has heard or read. He also loses his train of thought while talking: I can't keep my thoughts up with my mouth. He also reported changes in handwriting since ~3 yrs ago, now with poor legibility. Upon matthieu COVID-19, the pt was hospitalized for ~60 days, primarily at [facility], including inpatient rehab. At no time was he ventilated. The pt also c/o frequent dizziness and associated falls off and on for the last couple of years. He reported hitting his head sometimes but denied resultant cognitive or communication changes. He is scheduled to begin PT at this clinic July 12. The pt lives with his who is my memory. She assists with appts, meds, etc. The pt was recently diagnosed with sleep apnea and is scheduled for CPAP fitting June 22. Subjective Observations/Patient Presentation Pt arrived on time. No new complaints. He reported using Yessenia to communicate via text since last session and finding it helpful. Chief Complaint(s) Cognitive Patient Knowledge/Awareness of TREE FRUIT AND NUT FARMING SUPERVISOR Role Good in Treatment Objective Short Term Goals 1. The pt will participate in completion of assessment to guide POC. GOAL MET 2. With TREE FRUIT AND NUT FARMING SUPERVISOR/spouse collaboration as needed, the pt will develop external memory tools (e.g., calendar, memory book, etc.) to increase his ability to recall functional information and fulfill personal/family responsibilities. 3. The pt will demonstrate understanding of internal memory strategies by completing structured memory tasks (e.g., recall a list of items, novel information, etc. ) with 80% accuracy to improve memory skills and ability to perform functional tasks independently. 4. The pt will name 12 items in a concrete category in 60 sec across 3 trials to improve word recall skills. 5. Following Semantic Features Analysis structure, the pt will describe aspects of objects, people, actions, etc. to improve word recall skills in functional conversations. Product Blending Supervisor Goals 1. Using external memory tools as needed, the pt will fulfill personal and family responsibilities (e.g., attend appts, take medications) with minimal spouse assistance to increase independence and reduce caregiver burden. 2. The pt will use word recall strategies with minimal prompts in 80% of opportunities to reduce conversation breakdowns and increase participation in communicative activities. 3. Using strategies and external tools as needed, the pt will demonstrate recall of functional information and words WFL, as measured by pt/ spouse report and clinician judgment. Treatment Activities Targeted reading comprehension and recall using a familiar parable from the New Testament (the good Yazidi). The pt read the text aloud 3 minimal errors (e.g., omitted function word, incorrect verb tense). He rated his ease of reading as somewhat difficult, identifying unfamiliar words, such as names of cities or people, as troublesome, although he did not stumble on these when reading. He read at a normal rate and with normal inflection. The pt answered referential questions with 100% acc and inferential questions with 67% acc (2/3). Continued education with demonstration in use of Yessenia to enable memory tools on the pt?s smart phone, including scheduling appts. No pt trials were performed. Provided written instructions for common tasks. Assessment Patient Response to Treatment Good Assessment of Overall Progress Unchanged Assessment of Improvement The pt demonstrated reading skills WNL and greater recall of concrete information vs abstract/inferential reasoning . Reviewed with Patient Goals,Progress Being Made,Home Exercise Program Patient/Caregiver Understanding Good Plan Amount of Therapy Recommended 6 Months Frequency of Treatment Once a Week Length of Session 45 Minutes Treatment Emphasis Next Session Read and comprehend moderately complex Scripture (NT) Therapeutic Contents Client Education,Cognitive- Linguistic Training,Home Exercise Program,Written Expression Provided Patient/Caregiver Instruction Home Exercise Program,Plan of Care,Questions/Concerns Therapy Recommendations Continue with Current Program
--- NOTE | 2021-08-16 16:56 | ST.OPTN ---
Visit Care Team Role Provider Type Erika Pedraza PA-C Primary Care Provider Non-Staff Address: [address] [place] [address], [id number] Man Templeton MD Attending Provider Non-Staff Referring Provider Address: [place], [address] SHOTWELD OPERATOR Treatment Note SHOTWELD OPERATOR Treatment Note Start: 06/19/21 12:30 Freq: Status: Active Protocol: Document 08/16/21 13:29 JOANNE (Rec: 08/16/21 13:32 JOANNE [id number]) Speech Pathology Treatment Note Session Time Visit Start Time 12:30 Visit Stop Time 13:25 Total Visit Minutes 55 Visit Information Visit Number 03/20 Plan of Care Dates 08/15/21 - 11/10/21 Insurance Information Medicare; [facility] Setting Treatment Setting Outpatient Care Visit Type Note Type Progress Note Next Note Type Next Note Type Treatment Note General Information Patient History The pt is a 80-yr-old male who goes by Cheyipai and is s/p COVID -19 from July to Nov 2020. Prior to COVID, he experienced mild WFDs and cognitive changes that seemed appropriate to his age. These worsened significantly after COVID and continue to be problematic, including difficulty recalling names of familiar people, WFDs, missing appts despite having them recorded in his phone, and trouble remembering things he has heard or read. He also loses his train of thought while talking: I can't keep my thoughts up with my mouth. He also reported changes in handwriting since ~3 yrs ago, now with poor legibility. Upon matthieu COVID-19, the pt was hospitalized for ~60 days, primarily at [facility], including inpatient rehab. At no time was he ventilated. The pt also c/o frequent dizziness and associated falls off and on for the last couple of years. He reported hitting his head sometimes but denied resultant cognitive or communication changes. He is scheduled to begin PT at this clinic July 12. The pt lives with his who is my memory. She assists with appts, meds, etc. The pt was recently diagnosed with sleep apnea and is scheduled for CPAP fitting June 22. Subjective Observations/Patient Presentation Pt arrived on time. No new complaints. He returns after time off to travel out of state, which seemed to go well . He reported ongoing apathy toward doing tasks around the house and stated he is easily frustrated in conversations with his family, when tasks are not easily accomplished such as changing accessing his sabianism account online, and feeling overwhelmed by the buildup of things that need to be done, such as taking care of the lawn. Chief Complaint(s) Cognitive Patient Knowledge/Awareness of SHOTWELD OPERATOR Role Good in Treatment Objective Short Term Goals 1. With SHOTWELD OPERATOR/spouse collaboration as needed, the pt will develop external memory tools (e.g., calendar, memory book, etc.) to increase his ability to recall functional information and fulfill personal/family responsibilities. MAKING PROGRESS 3. The pt will demonstrate understanding of internal memory strategies by completing structured memory tasks (e.g., recall a list of items, novel information, etc. ) with 75% accuracy to improve memory skills and ability to perform functional tasks independently. SLOW PROGRESS 4. Following Semantic Features Analysis structure, the pt will describe aspects of objects, people, actions, etc. to improve word recall skills in functional conversations. 5. NEW GOAL: Following structured guidelines, (e.g., [id number]-Jw-Review), the pt will identify and follow steps to tasks to reduce associated overwhelm and increase participation in functional activities as per PLOF. 6. NEW GOAL: Following structured guides, the pt will identify main ideas and discuss limited details about Scripture to improve his ability to participate in sabianism and personal activities . Registered Route Associate Goals CONTINUE GOALS 1. Using external memory tools as needed, the pt will fulfill personal and family responsibilities (e.g., attend appts, take medications) with minimal spouse assistance to increase independence and reduce caregiver burden. 2. The pt will use word recall strategies with minimal prompts in 80% of opportunities to reduce conversation breakdowns and increase participation in communicative activities. 3. Using strategies and external tools as needed, the pt will demonstrate recall of functional information and words WFL, as measured by pt/ spouse report and clinician judgment. Treatment Activities Continued collaboration with pt to identify how impairments are impacting functional activities. Attempted to target problem solving strategies with the task of changing his password; however , the success could not be measured as the website required a waiting period prior to reattempting login. Targeted reading strategies via a worksheet with scripture passages and guided questions to assist the pt in organizing thoughts around this functional reading task. Verbal instructions were provided and the pt verbalized understanding and interest. Due to time limitations, trials were not administered. Discussed POC. SHOTWELD OPERATOR recommended continued intervention, although d/t scheduling conflicts, the next available appt may not be until September. The pt was agreeable to this and placed on a waitlist to be called if appts become available sooner. Assessment Patient Response to Treatment Fair Rehab Potential Fair Impairments Identified Cognitive communication Impairment comment Prognosis impacted by signs of depression Progress Towards Goals Delayed Progress Assessment of Overall Progress Unchanged Assessment of Improvement The pt expresses and demonstrates signs of apathy, possible depression, making statements such as I just want to sit and watch TV. Things are just really hard. I don't know how to explain it. He has difficulty identifying specific tasks that are impacted by cognitive impairments, making functional targets for therapy challenging. He continues with moderate working and short-term memory deficits and sensations of being overwhelmed by tasks, which result in task and conversation abandonment and increased isolation. He appears motivated to improve reading skills targeting his ability to discuss Scripture and was receptive to strategies toward that end today. In order to increase the pt's participation in daily activities and maintain relationships and QOl, continued skilled intervention is medically necessary targeting tracking and recalling functional information and developing strategies to simplify tasks so that they are cognitively manageable for him. Reviewed with Patient Goals,Progress Being Made,Home Exercise Program Patient/Caregiver Understanding Good Plan Amount of Therapy Recommended 2-3 Months Frequency of Treatment Once a Week Length of Session 45 Minutes Treatment Emphasis Next Session Reading comprehension; simplifying functional tasks Therapeutic Contents Client Education,Cognitive- Linguistic Training,Home Exercise Program,Written Expression Provided Patient/Caregiver Instruction Home Exercise Program,Plan of Care,Questions/Concerns Therapy Recommendations Continue with Current Program
--- NOTE | 2021-10-04 18:28 | ST.OPDS ---
Visit Care Team Role Provider Type Erika Pedraza PA-C Primary Care Provider Non-Staff Address: [address] [place] [address], [address] Man Templeton MD Attending Provider Non-Staff Referring Provider Address: [place], [address] SPECIAL NEEDS TEACHER Treatment Note SPECIAL NEEDS TEACHER Treatment Note Start: 06/19/21 12:30 Freq: Status: Active Protocol: Document 10/04/21 18:20 [facility] (Rec: 10/04/21 18:22 [facility] [id number]) Speech Pathology Treatment Note Visit Information Plan of Care Dates 08/15/21 - 11/10/21 Insurance Information Medicare; [facility] Setting Treatment Setting Outpatient Care Visit Type Note Type Discharge Summary General Information Patient History The pt is a 80-yr-old male who goes by Bill and is s/p COVID -19 from July to Nov 2020. Prior to COVID, he experienced mild WFDs and cognitive changes that seemed appropriate to his age. These worsened significantly after COVID and continue to be problematic, including difficulty recalling names of familiar people, WFDs, missing appts despite having them recorded in his phone, and trouble remembering things he has heard or read. He also loses his train of thought while talking: I can't keep my thoughts up with my mouth. He also reported changes in handwriting since ~3 yrs ago, now with poor legibility. Upon matthieu COVID-19, the pt was hospitalized for ~60 days, primarily at [facility], including inpatient rehab. At no time was he ventilated. The pt also c/o frequent dizziness and associated falls off and on for the last couple of years. He reported hitting his head sometimes but denied resultant cognitive or communication changes. He is scheduled to begin PT at this clinic July 12. The pt lives with his who is my memory. She assists with appts, meds, etc. The pt was recently diagnosed with sleep apnea and is scheduled for CPAP fitting June 22. Subjective Observations/Patient Presentation The pt was last seen August 16. He called the clinic to request cancelation of remaining sessions. He is discharged from skilled intervention. Chief Complaint(s) Cognitive Objective Short Term Goals 1. With SPECIAL NEEDS TEACHER/spouse collaboration as needed, the pt will develop external memory tools (e.g., calendar, memory book, etc.) to increase his ability to recall functional information and fulfill personal/family responsibilities. 3. The pt will demonstrate understanding of internal memory strategies by completing structured memory tasks (e.g., recall a list of items, novel information, etc. ) with 75% accuracy to improve memory skills and ability to perform functional tasks independently. 4. Following Semantic Features Analysis structure, the pt will describe aspects of objects, people, actions, etc. to improve word recall skills in functional conversations. 5. Following structured guidelines, (e.g., Goal-Plan- Do-Review), the pt will identify and follow steps to tasks to reduce associated overwhelm and increase participation in functional activities as per PLOF. 6. Following structured guides , the pt will identify main ideas and discuss limited details about Scripture to improve his ability to participate in orthodox and personal activities. Pharmacy Technician Instructor Goals 1. Using external memory tools as needed, the pt will fulfill personal and family responsibilities (e.g., attend appts, take medications) with minimal spouse assistance to increase independence and reduce caregiver burden. 2. The pt will use word recall strategies with minimal prompts in 80% of opportunities to reduce conversation breakdowns and increase participation in communicative activities. 3. Using strategies and external tools as needed, the pt will demonstrate recall of functional information and words WFL, as measured by pt/ spouse report and clinician judgment. Assessment Impairments Identified Cognitive communication Progress Towards Goals Delayed Progress Plan Therapy Recommendations Discharge from Speech Therapy Reason for Discharge Pt request
== END 2021-10-11 09:23 ==
LOC: SP 12:30
PROVIDERS: PCP Physician Assistant; Referring Provider Psychiatry & Neurology Neurology; Visit Provider Psychiatry & Neurology Neurology
DX: R41.3 Other amnesia (principal)
CPT/HCPCS: 96125; 97129; 97130

== ENCOUNTER 2021-09-18 10:30 | Outpatient (RCR) | payer MEDICARE, OTHER, SELFPAY ==
--- NOTE | 2021-07-12 17:45 | PT.OIE ---
Current Diagnoses Low back pain, unspecified (07/12/21) Muscle weakness (generalized) (07/12/21) Difficulty in walking, not elsewhere classified (07/12/21) Other abnormalities of gait and mobility (07/12/21) Abnormal posture (07/12/21) History of falling (07/12/21) Past Medical History (Last Reviewed 05/15/21 @ 14:16 by Ike Almonte MD) Atrial fibrillation Diabetes Hypertension Visit Care Team Role Provider Type Erika Pedraza PA-C Primary Care Provider Non-Staff Specialty: Internal Medicine Address: [address] [place] [address], [id number] Email: [email or web address] Man Templeton MD Attending Provider Non-Staff Referring Provider Specialty: Neurology Address: [address] [place] [address], [id number] Email: Physical Therapy Initial Evaluation PT-OP-A Visit Information Start: 07/11/21 18:42 Freq: Status: Active Protocol: Document 07/12/21 11:20 [facility] (Rec: 07/12/21 12:14 [facility] [id number]) Out-Patient Physical Therapy Visit Information Visit Information Visit Type Initial Evaluation Visit Note 03/20 Visit Start Time 11:24 Visit Stop Time 12:08 Total Visit Minutes 44 Visit Number 1 Number of AMUSEMENT RIDE INSPECTOR Visits 0 PT-OP-B Current Condition Start: 07/11/21 18:42 Freq: Status: Active Protocol: Document 07/12/21 11:20 [facility] (Rec: 07/12/21 12:14 [facility] [id number]) Current Condition History of Current Condition Onset Date 2 years Current Complaints dec balance and weakness History of Current Condition Pt reports its been about 2 years that he has c/o being dizzy. He can't sit on a chair w/o a back on it d/t falling backwards and the same at EOB. He has fallen to the ground a few times. Pt reports spending multiple days in [facility] ([facility] then [place] [id number]) then 6 days the rehab for COVID then had HH therapies for a while. He has done some walkign but reports not near enough. Reports he doesn't feel like he has any strength at all in his body. He has to rest after doing any much activity. He fell lifting L leg to get into the car. He has had 3-4 falls in the past year. When pt notes he gets dizzy,his body just feels off balance. Denies any spinning. He feels woozy if he bends over and stands up. If he uses a public restroom, he has to hang to the wall to balance. Pt reprots this has been a gradual decrease in balance. Pt reports using a walking stick and 4WW for out of the house but in the house he reaches for furniture. On Saturdays, he often goes to his [employer] soccer games. He feels okay on the grass as long as his walker is with him . Reports it can be difficult getting in/out of bed. Pt had spinal fusion at L4-5 about 4 or so years ago and reports he does still have back pain. Prior Treatments and Tests IMPRESSION: 1. No acute intracranial disease process. 2. Ventriculomegaly which could be due to central volume loss versus normal pressure hydrocephalus. Recommend correlation with clinical data . 3. No areas of acute or chronic infarction. 4. Diffuse cerebral volume loss. 5. Minimal periventricular and subcortical white matter chronic microvascular ischemic change. PT-OP-C Subjective Start: 07/11/21 18:42 Freq: Status: Active Protocol: Document 07/12/21 11:20 [facility] (Rec: 07/12/21 12:14 [facility] [id number]) Patient Questionnaires ABC- Activity Specific Balance Confidence Scale ABC Score 39.3 OP-PT Pain Assessment Location low back pain Pain Location Details Lumbar B Intensity 5 Scale Used Numeric (0 - 10) Description Aching Frequency Intermittent Variations/Patterns occ shooting into L ant thigh Pain Aggravating Factors Standing,Walking Pain Alleviating Factors Cold,Inactivity PT-OP-D Balance Start: 07/11/21 18:42 Freq: Status: Active Protocol: Document 07/12/21 11:20 [facility] (Rec: 07/12/21 12:14 [facility] [id number]) Balance Tests Lombardi Balance Test Lombardi Balance Test Score 36 PT-OP-E Functional Tests Start: 07/11/21 18:42 Freq: Status: Active Protocol: Document 07/12/21 11:20 [facility] (Rec: 07/12/21 12:14 [facility] [id number]) Functional Tests 30 Second Sit to Stand Test Score 5 Comments w/UEs silver chair Dynamic Gait Index (DGI) Score 3 Five Times Sit to Stand Test Score 32 sec Comments w/UEs silver chair PT-OP-G Mobility & Gait Start: 07/11/21 18:42 Freq: Status: Active Protocol: Document 07/12/21 11:20 [facility] (Rec: 07/12/21 12:14 [facility] [id number]) OP Mobility Evaluation Bed Mobility Supine to and from Sit log roll into and out of bed- slow Transfers Sit to Stand requires UE use OP Gait Assessment Comments Gait Comments Pt amb w/single walking stick in L hand w/L lat lean of trunk in standing and dec B foot clearance PT-OP-J Posture/Palpation/Skin Start: 07/11/21 18:42 Freq: Status: Active Protocol: Document 07/12/21 11:20 [facility] (Rec: 07/12/21 12:14 [facility] [id number]) Posture Evaluation Comments Posture Comments pt stands fwd flexed at hips and lat lean to L PT-OP-M Strength Start: 07/11/21 18:42 Freq: Status: Active Protocol: Document 07/12/21 11:20 [facility] (Rec: 07/12/21 12:14 [facility] [id number]) Hip Strength Hip Manual Muscle Testing Right Flexion (L2) 3 Fair Abduction 3- Fair- External Rotation 3+ Fair+ Internal Rotation 3+ Fair+ Left Flexion (L2) 3 Fair Abduction 4- Good- External Rotation 3+ Fair+ Internal Rotation 3+ Fair+ Knee Strength Knee Manual Muscle Testing Right Flexion (S2) 3+ Fair+ Extension (L3) 3+ Fair+ Left Flexion (S2) 3+ Fair+ Extension (L3) 3+ Fair+ Ankle/Foot Strength Ankle and Foot Manual Muscle Testing Right Dorsiflexion (L4) 4- Good- Plantarflexion (S1) 4- Good- Left Dorsiflexion (L4) 3+ Fair+ Plantarflexion (S1) 3+ Fair+ PT-OP-T Assessment and Plan Start: 07/11/21 18:42 Freq: Status: Active Protocol: Document 07/12/21 11:20 [facility] (Rec: 07/12/21 12:14 [facility] [id number]) Physical Therapy Assessment Rehab Potential Rehabilitation Potential Good Evaluation Complexity Number of Personal Factors/Comorbidities 3 or More Number of Body Systems Impaired 4 or More Clinical Presentation at Evaluation Unstable Impairments Impairments Activity Tolerance,Balance, Functional Activities, Functional Mobility,Gait,Pain, Posture,ROM,Soft Tissue Mobility,Strength Goals sit to stand Short Term Goal (STG) Pt will be able to complete 5x sit to stand from 17 in chair w/o use of hands. STG Duration 09/08/21 County Program Technician Goal (LTG) Pt will be able to complete 11 sit to stands from 17 in chair w/o hands in 30 sec LTG Duration 10/12/21 back pain County Program Technician Goal (LTG) Pt will report no greater than 2/10 LBP with standing and walking. LTG Duration 10/12/21 DGI Impairment Short Term Goal (STG) Pt will imrpove score to at least 17 to show dec risk for falls STG Duration 08/23/21 Nursing Home Goal (LTG) Pt will improve score to at least 20 to show dec risk for falls LTG Duration 10/12/21 strength Short Term Goal (STG) Pt will be indep w/HEP STG Duration 08/23/21 County Program Technician Goal (LTG) Pt will score at least 4/5 BLE strength in all MMT to show improved strength in order to imrpove pt ability to do typical daily activities w/o pain. LTG Duration 10/12/21 LOMBARDI Impairment 36 Short Term Goal (STG) Pt will score at least 45 on LOMBARDI to show pt is a safe ambulator w/o AD and is less likely to fall. STG Duration 09/08/21 Nursing Home Goal (LTG) Pt will score at least 50 on LOMBARDI to show pt is a safe ambulator in community/ outdoors and is less likely to fall. LTG Duration 10/12/21 Assessment Summary Assessment Pt presents w/progressive balance issues that have been ongoing for the past 2 years with pt having a long hospitalization and rehab stay d/t COVID last summer/fall that made his issues worse. He has had 3 falls in the past year and feels unstable even sitting at the EOB w/o back support. He does have chronic back pain w/poor posture that likely affects his balance and decreases his ability for his core to activate to help stabilize him. He shows a high risk for falls based on sit to stand tests, DGI and LOMBARDI balance tests along w/his history of falls. He has a slow gait pattern w/poor LE clearance and overall BLE weakness. He would benefit from skilled PT to address these deficits and dec his risk for falls and improve his ease w/his typical activities . Physical Therapy Plan Frequency and Duration Frequency of Treatment 2x/Week Duration of Treatment 3 months Plan of Care Start Date 07/12/21 Plan of Care End Date 10/12/21 Therapeutic Interventions Therapeutic Interventions Aquatic Therapy,Balance Training,Gait Training,Home Exercise Program,Joint Mobilizations,Manual Therapy, Neuromuscular Re-education, Patient/Caregiver Education, Self-Care/Home Management,Soft Tissue Mobilization,Taping, Therapeutic Activities, Therapeutic Exercises, Vestibular Rehabilitation Modalities Cold Pack/Ice Massage,Electric Stimulation,Hot Packs Next Visit Focus/Plan Next Note Type Treatment Note Next Visit Plan set up HEP: sit to stands, bridges, SLR, s/l abd, start standing strength & balance exercises
--- NOTE | 2021-07-12 17:45 | PT.OPPOC ---
Physical, Occupational & Speech Therapy At [facility] Current Diagnoses Low back pain, unspecified (07/12/21) Muscle weakness (generalized) (07/12/21) Difficulty in walking, not elsewhere classified (07/12/21) Other abnormalities of gait and mobility (07/12/21) Abnormal posture (07/12/21) History of falling (07/12/21) Visit Care Team Role Provider Type Erika Pedraza PA-C Primary Care Provider Non-Staff Specialty: Internal Medicine Address: [address] [place] [address], [id number] Email: [email or web address] Man Templeton MD Attending Provider Non-Staff Referring Provider Specialty: Neurology Address: [address] [place] [address], [id number] Email: Plan Of Care PT-OP-T Assessment and Plan Start: 07/11/21 18:42 Freq: Status: Active Protocol: Document 07/12/21 11:20 [facility] (Rec: 07/12/21 12:14 [facility] [id number]) Physical Therapy Assessment Rehab Potential Rehabilitation Potential Good Evaluation Complexity Number of Personal Factors/Comorbidities 3 or More Number of Body Systems Impaired 4 or More Clinical Presentation at Evaluation Unstable Impairments Impairments Activity Tolerance,Balance, Functional Activities, Functional Mobility,Gait,Pain, Posture,ROM,Soft Tissue Mobility,Strength Goals sit to stand Short Term Goal (STG) Pt will be able to complete 5x sit to stand from 17 in chair w/o use of hands. STG Duration 09/08/21 Half-Way Goal (LTG) Pt will be able to complete 11 sit to stands from 17 in chair w/o hands in 30 sec LTG Duration 10/12/21 back pain Ground Support Agent Goal (LTG) Pt will report no greater than 2/10 LBP with standing and walking. LTG Duration 10/12/21 DGI Impairment Short Term Goal (STG) Pt will imrpove score to at least 17 to show dec risk for falls STG Duration 08/23/21 Ground Support Agent Goal (LTG) Pt will improve score to at least 20 to show dec risk for falls LTG Duration 10/12/21 strength Short Term Goal (STG) Pt will be indep w/HEP STG Duration 08/23/21 Ground Support Agent Goal (LTG) Pt will score at least 4/5 BLE strength in all MMT to show improved strength in order to imrpove pt ability to do typical daily activities w/o pain. LTG Duration 10/12/21 LOMBARDI Impairment 36 Short Term Goal (STG) Pt will score at least 45 on LOMBARDI to show pt is a safe ambulator w/o AD and is less likely to fall. STG Duration 09/08/21 Ground Support Agent Goal (LTG) Pt will score at least 50 on LMOBARDI to show pt is a safe ambulator in community/ outdoors and is less likely to fall. LTG Duration 10/12/21 Assessment Summary Assessment Pt presents w/progressive balance issues that have been ongoing for the past 2 years with pt having a long hospitalization and rehab stay d/t COVID last summer/fall that made his issues worse. He has had 3 falls in the past year and feels unstable even sitting at the EOB w/o back support. He does have chronic back pain w/poor posture that likely affects his balance and decreases his ability for his core to activate to help stabilize him. He shows a high risk for falls based on sit to stand tests, DGI and LOMBARDI balance tests along w/his history of falls. He has a slow gait pattern w/poor LE clearance and overall BLE weakness. He would benefit from skilled PT to address these deficits and dec his risk for falls and improve his ease w/his typical activities . Physical Therapy Plan Frequency and Duration Frequency of Treatment 2x/Week Duration of Treatment 3 months Plan of Care Start Date 07/12/21 Plan of Care End Date 10/12/21 Therapeutic Interventions Therapeutic Interventions Aquatic Therapy,Balance Training,Gait Training,Home Exercise Program,Joint Mobilizations,Manual Therapy, Neuromuscular Re-education, Patient/Caregiver Education, Self-Care/Home Management,Soft Tissue Mobilization,Taping, Therapeutic Activities, Therapeutic Exercises, Vestibular Rehabilitation Modalities Cold Pack/Ice Massage,Electric Stimulation,Hot Packs Next Visit Focus/Plan Next Note Type Treatment Note Next Visit Plan set up HEP: sit to stands, bridges, SLR, s/l abd, start standing strength & balance exercises Plan of Care Dates Plan of Care Start Date 07/12/21 Plan of Care End Date 10/12/21 Electronically Signed by: Lory Melendez, PT 07/12/21 [id number] If you are in agreement with this Plan of Care, please return a signed and dated copy. I have reviewed this Plan of Care and certify that the skilled therapy services above are required to meet the patient?s needs. Physician Signature Date Printed Name and Credentials Clinical Instructor Signature Printed Name and Credentials
--- NOTE | 2021-07-19 15:19 | PT.OTN ---
Current Diagnoses Low back pain, unspecified (07/19/21) Muscle weakness (generalized) (07/19/21) Difficulty in walking, not elsewhere classified (07/19/21) Other abnormalities of gait and mobility (07/19/21) Abnormal posture (07/19/21) History of falling (07/19/21) Physical Therapy Treatment Note PT-OP-A Visit Information Start: 07/11/21 18:42 Freq: Status: Active Protocol: Document 07/19/21 14:47 [facility] (Rec: 07/19/21 15:13 [facility] [id number]) Out-Patient Physical Therapy Visit Information Visit Information Visit Type Treatment Note Visit Note 04/20 Visit Start Time 14:35 Visit Stop Time 15:15 Total Visit Minutes 40 Visit Number 2 Number of TRUCK DRIVER Visits 0 PT-OP-B Current Condition Start: 07/11/21 18:42 Freq: Status: Active Protocol: Document 07/12/21 11:20 [facility] (Rec: 07/12/21 12:14 [facility] [id number]) Current Condition History of Current Condition Onset Date 2 years Current Complaints dec balance and weakness History of Current Condition Pt reports its been about 2 years that he has c/o being dizzy. He can't sit on a chair w/o a back on it d/t falling backwards and the same at EOB. He has fallen to the ground a few times. Pt reports spending multiple days in [facility] ([facility] then [place] [address]) then 6 days the rehab for COVID then had therapies for a while. He has done some walkign but reports not near enough. Reports he doesn't feel like he has any strength at all in his body. He has to rest after doing any much activity. He fell lifting L leg to get into the car. He has had 3-4 falls in the past year. When pt notes he gets dizzy,his body just feels off balance. Denies any spinning. He feels woozy if he bends over and stands up. If he uses a public restroom, he has to hang to the wall to balance. Pt reprots this has been a gradual decrease in balance. Pt reports using a walking stick and 4WW for out of the house but in the house he reaches for furniture. On Saturdays, he often goes to his granddgt's soccer games. He feels okay on the grass as long as his walker is with him . Reports it can be difficult getting in/out of bed. Pt had spinal fusion at L4-5 about 4 or so years ago and reports he does still have back pain. Prior Treatments and Tests IMPRESSION: 1. No acute intracranial disease process. 2. Ventriculomegaly which could be due to central volume loss versus normal pressure hydrocephalus. Recommend correlation with clinical data . 3. No areas of acute or chronic infarction. 4. Diffuse cerebral volume loss. 5. Minimal periventricular and subcortical white matter chronic microvascular ischemic change. PT-OP-C Subjective Start: 07/11/21 18:42 Freq: Status: Active Protocol: Document 07/19/21 14:47 [facility] (Rec: 07/19/21 15:13 [facility] [id number]) OP-PT Subjective Patient Comments Patient Comments Pt reports its been an okay day so far PT-OP-D Balance Start: 07/11/21 18:42 Freq: Status: Active Protocol: Document 07/12/21 11:20 [facility] (Rec: 07/12/21 12:14 [facility] [id number]) Balance Tests Lombardi Balance Test Lombardi Balance Test Score 36 PT-OP-E Functional Tests Start: 07/11/21 18:42 Freq: Status: Active Protocol: Document 07/12/21 11:20 [facility] (Rec: 07/12/21 12:14 [facility] [id number]) Functional Tests 30 Second Sit to Stand Test Score 5 Comments w/UEs silver chair Dynamic Gait Index (DGI) Score 3 Five Times Sit to Stand Test Score 32 sec Comments w/UEs silver chair PT-OP-G Mobility & Gait Start: 07/11/21 18:42 Freq: Status: Active Protocol: Document 07/12/21 11:20 [facility] (Rec: 07/12/21 12:14 [facility] [id number]) OP Mobility Evaluation Bed Mobility Supine to and from Sit log roll into and out of bed- slow Transfers Sit to Stand requires UE use OP Gait Assessment Comments Gait Comments Pt amb w/single walking stick in L hand w/L lat lean of trunk in standing and dec B foot clearance PT-OP-J Posture/Palpation/Skin Start: 07/11/21 18:42 Freq: Status: Active Protocol: Document 07/12/21 11:20 [facility] (Rec: 07/12/21 12:14 [facility] [id number]) Posture Evaluation Comments Posture Comments pt stands fwd flexed at hips and lat lean to L PT-OP-M Strength Start: 07/11/21 18:42 Freq: Status: Active Protocol: Document 07/12/21 11:20 [facility] (Rec: 07/12/21 12:14 [facility] [id number]) Hip Strength Hip Manual Muscle Testing Right Flexion (L2) 3 Fair Abduction 3- Fair- External Rotation 3+ Fair+ Internal Rotation 3+ Fair+ Left Flexion (L2) 3 Fair Abduction 4- Good- External Rotation 3+ Fair+ Internal Rotation 3+ Fair+ Knee Strength Knee Manual Muscle Testing Right Flexion (S2) 3+ Fair+ Extension (L3) 3+ Fair+ Left Flexion (S2) 3+ Fair+ Extension (L3) 3+ Fair+ Ankle/Foot Strength Ankle and Foot Manual Muscle Testing Right Dorsiflexion (L4) 4- Good- Plantarflexion (S1) 4- Good- Left Dorsiflexion (L4) 3+ Fair+ Plantarflexion (S1) 3+ Fair+ PT-OP-Q Treatments Start: 07/11/21 18:42 Freq: Status: Active Protocol: Document 07/19/21 14:47 [facility] (Rec: 07/19/21 15:13 [facility] [id number]) Cardio Equipment Recumbent Stepper (Sci-Fit) Duration (Minutes) 6 Resistance 4 Seat Position 12 Gym Equipment Shuttle Recovery Bilateral Squats Resistance 87# Shuttle Recovery Platform Stable Reps/Time 2x15 Shuttle Balance blue clips Comments fwd & side: WBOS &NBOS fwd: staggered stance B Therapeutic Exercises Supine Exercises SLR Side bilateral Reps/Minutes 15 bridge Side bilateral Reps/Minutes 15 Sidelying Exercises abd Side bilateral Reps/Minutes 10 Comments max cues for body position Standing Exercises sit to stand Side bilateral Reps/Minutes 10 Comments hands on knees Neuro Re-Education Treatment Balance Activities hurdles Comments fwd over 6 x8 2. side step over 6 x2 B w/1 A/C TECH on rail PT-OP-T Assessment and Plan Start: 07/11/21 18:42 Freq: Status: Active Protocol: Document 07/19/21 14:47 [facility] (Rec: 07/19/21 15:13 [facility] [id number]) Physical Therapy Assessment Goals sit to stand Short Term Goal (STG) Pt will be able to complete 5x sit to stand from 17 in chair w/o use of hands. STG Duration 09/08/21 Ergonomics Engineer Goal (LTG) Pt will be able to complete 11 sit to stands from 17 in chair w/o hands in 30 sec LTG Duration 10/12/21 back pain Intermediate Goal (LTG) Pt will report no greater than 2/10 LBP with standing and walking. LTG Duration 10/12/21 DGI Impairment Short Term Goal (STG) Pt will imrpove score to at least 17 to show dec risk for falls STG Duration 08/23/21 Ergonomics Engineer Goal (LTG) Pt will improve score to at least 20 to show dec risk for falls LTG Duration 10/12/21 strength Short Term Goal (STG) Pt will be indep w/HEP STG Duration 08/23/21 Intermediate Goal (LTG) Pt will score at least 4/5 BLE strength in all MMT to show improved strength in order to imrpove pt ability to do typical daily activities w/o pain. LTG Duration 10/12/21 LOMBARDI Impairment 36 Short Term Goal (STG) Pt will score at least 45 on LOMBARDI to show pt is a safe ambulator w/o AD and is less likely to fall. STG Duration 09/08/21 Ergonomics Engineer Goal (LTG) Pt will score at least 50 on LOMBARDI to show pt is a safe ambulator in community/ outdoors and is less likely to fall. LTG Duration 10/12/21 Assessment Summary Assessment Pt did well with exercises but was fatigued and required occ seated rest breaks to recover . He does require cues when walking to avoid scuffing his feet. Physical Therapy Plan Frequency and Duration Frequency of Treatment 2x/Week Duration of Treatment 3 months Plan of Care Start Date 07/12/21 Plan of Care End Date 10/12/21 Next Visit Focus/Plan Next Note Type Treatment Note Next Visit Plan review HEP and work on standing mahsa
--- NOTE | 2021-08-16 14:31 | PT.OTN ---
Current Diagnoses Low back pain, unspecified (08/16/21) Muscle weakness (generalized) (08/16/21) Difficulty in walking, not elsewhere classified (08/16/21) Other abnormalities of gait and mobility (08/16/21) Abnormal posture (08/16/21) History of falling (08/16/21) Physical Therapy Treatment Note PT-OP-A Visit Information Start: 07/11/21 18:42 Freq: Status: Active Protocol: Document 08/16/21 13:52 [facility] (Rec: 08/16/21 14:31 [facility] [id number]) Out-Patient Physical Therapy Visit Information Visit Information Visit Type Treatment Note Visit Note 05/18 Visit Start Time 13:49 Visit Stop Time 14:29 Total Visit Minutes 40 Visit Number 3 Number of PAYROLL MACHINE OPERATOR Visits 0 PT-OP-B Current Condition Start: 07/11/21 18:42 Freq: Status: Active Protocol: Document 07/12/21 11:20 [facility] (Rec: 07/12/21 12:14 [facility] [id number]) Current Condition History of Current Condition Onset Date 2 years Current Complaints dec balance and weakness History of Current Condition Pt reports its been about 2 years that he has c/o being dizzy. He can't sit on a chair w/o a back on it d/t falling backwards and the same at EOB. He has fallen to the ground a few times. Pt reports spending multiple days in [facility] ([facility] then [place] [address]) then 6 days the rehab for COVID then had therapies for a while. He has done some walkign but reports not near enough. Reports he doesn't feel like he has any strength at all in his body. He has to rest after doing any much activity. He fell lifting L leg to get into the car. He has had 3-4 falls in the past year. When pt notes he gets dizzy,his body just feels off balance. Denies any spinning. He feels woozy if he bends over and stands up. If he uses a public restroom, he has to hang to the wall to balance. Pt reprots this has been a gradual decrease in balance. Pt reports using a walking stick and 4WW for out of the house but in the house he reaches for furniture. On Saturdays, he often goes to his granddgt's soccer games. He feels okay on the grass as long as his walker is with him . Reports it can be difficult getting in/out of bed. Pt had spinal fusion at L4-5 about 4 or so years ago and reports he does still have back pain. Prior Treatments and Tests IMPRESSION: 1. No acute intracranial disease process. 2. Ventriculomegaly which could be due to central volume loss versus normal pressure hydrocephalus. Recommend correlation with clinical data . 3. No areas of acute or chronic infarction. 4. Diffuse cerebral volume loss. 5. Minimal periventricular and subcortical white matter chronic microvascular ischemic change. PT-OP-C Subjective Start: 07/11/21 18:42 Freq: Status: Active Protocol: Document 08/16/21 13:52 [facility] (Rec: 08/16/21 14:31 [facility] [id number]) OP-PT Subjective Patient Comments Patient Comments He walked a couple miles ot go to a wedding ceremony. Reports he fell on the patio and hurt his R knee and thinks he is going othave to se the MD re: this d/t it still bothering him. PT-OP-D Balance Start: 07/11/21 18:42 Freq: Status: Active Protocol: Document 07/12/21 11:20 [facility] (Rec: 07/12/21 12:14 [facility] [id number]) Balance Tests Lombardi Balance Test Lombardi Balance Test Score 36 PT-OP-E Functional Tests Start: 07/11/21 18:42 Freq: Status: Active Protocol: Document 07/12/21 11:20 [facility] (Rec: 07/12/21 12:14 [facility] [id number]) Functional Tests 30 Second Sit to Stand Test Score 5 Comments w/UEs silver chair Dynamic Gait Index (DGI) Score 3 Five Times Sit to Stand Test Score 32 sec Comments w/UEs silver chair PT-OP-G Mobility & Gait Start: 07/11/21 18:42 Freq: Status: Active Protocol: Document 07/12/21 11:20 [facility] (Rec: 07/12/21 12:14 [facility] [id number]) OP Mobility Evaluation Bed Mobility Supine to and from Sit log roll into and out of bed- slow Transfers Sit to Stand requires UE use OP Gait Assessment Comments Gait Comments Pt amb w/single walking stick in L hand w/L lat lean of trunk in standing and dec B foot clearance PT-OP-J Posture/Palpation/Skin Start: 07/11/21 18:42 Freq: Status: Active Protocol: Document 07/12/21 11:20 [facility] (Rec: 07/12/21 12:14 [facility] [id number]) Posture Evaluation Comments Posture Comments pt stands fwd flexed at hips and lat lean to L PT-OP-M Strength Start: 07/11/21 18:42 Freq: Status: Active Protocol: Document 07/12/21 11:20 [facility] (Rec: 07/12/21 12:14 [facility] [id number]) Hip Strength Hip Manual Muscle Testing Right Flexion (L2) 3 Fair Abduction 3- Fair- External Rotation 3+ Fair+ Internal Rotation 3+ Fair+ Left Flexion (L2) 3 Fair Abduction 4- Good- External Rotation 3+ Fair+ Internal Rotation 3+ Fair+ Knee Strength Knee Manual Muscle Testing Right Flexion (S2) 3+ Fair+ Extension (L3) 3+ Fair+ Left Flexion (S2) 3+ Fair+ Extension (L3) 3+ Fair+ Ankle/Foot Strength Ankle and Foot Manual Muscle Testing Right Dorsiflexion (L4) 4- Good- Plantarflexion (S1) 4- Good- Left Dorsiflexion (L4) 3+ Fair+ Plantarflexion (S1) 3+ Fair+ PT-OP-Q Treatments Start: 07/11/21 18:42 Freq: Status: Active Protocol: Document 08/16/21 13:52 [facility] (Rec: 08/16/21 14:31 [facility] [id number]) Cardio Equipment Recumbent Stepper (Sci-Fit) Duration (Minutes) 6 Resistance 5 Seat Position 12 Gym Equipment Shuttle Recovery Bilateral Squats Resistance 87# Shuttle Recovery Platform Stable Reps/Time 2x15 Shuttle Balance blue clips Comments fwd & side: WBOS &NBOS fwd: staggered stance B Therapeutic Exercises Supine Exercises SLR Side bilateral Reps/Minutes 15 bridge Side bilateral Reps/Minutes 15 Sidelying Exercises abd Side bilateral Reps/Minutes 10 Comments max cues for body position Sitting Exercises hip ER Side bilateral Equipment Used L2 Reps/Minutes 15 hip add Side bilateral Equipment Used ball Reps/Minutes 10 sec x10 Standing Exercises sit to stand Side bilateral Reps/Minutes 10 Comments hands on knees Neuro Re-Education Treatment Balance Activities SLS Comments toe taps to 8 in step x10 B hurdles Comments 1.fwd over 6 x8 2. side step over 6 x2 B w/1 FISCAL TECHNICIAN on rail as needed PT-OP-T Assessment and Plan Start: 07/11/21 18:42 Freq: Status: Active Protocol: Document 08/16/21 13:52 [facility] (Rec: 08/16/21 14:31 [facility] [id number]) Physical Therapy Assessment Goals sit to stand Short Term Goal (STG) Pt will be able to complete 5x sit to stand from 17 in chair w/o use of hands. STG Duration 09/08/21 Detention Goal (LTG) Pt will be able to complete 11 sit to stands from 17 in chair w/o hands in 30 sec LTG Duration 10/12/21 back pain Maintenance Technician 3Rd Shift Goal (LTG) Pt will report no greater than 2/10 LBP with standing and walking. LTG Duration 10/12/21 DGI Impairment Short Term Goal (STG) Pt will imrpove score to at least 17 to show dec risk for falls STG Duration 08/23/21 Detention Goal (LTG) Pt will improve score to at least 20 to show dec risk for falls LTG Duration 10/12/21 strength Short Term Goal (STG) Pt will be indep w/HEP STG Duration 08/23/21 Maintenance Technician 3Rd Shift Goal (LTG) Pt will score at least 4/5 BLE strength in all MMT to show improved strength in order to imrpove pt ability to do typical daily activities w/o pain. LTG Duration 10/12/21 LOMBARDI Impairment 36 Short Term Goal (STG) Pt will score at least 45 on LOMBARDI to show pt is a safe ambulator w/o AD and is less likely to fall. STG Duration 09/08/21 Maintenance Technician 3Rd Shift Goal (LTG) Pt will score at least 50 on LOMBARDI to show pt is a safe ambulator in community/ outdoors and is less likely to fall. LTG Duration 10/12/21 Assessment Summary Assessment Pt still fatigues with exercises especially standing activity. Tried to use more seated activities to work on an active rest which pt tolerated well. Physical Therapy Plan Frequency and Duration Frequency of Treatment 2x/Week Duration of Treatment 3 months Plan of Care Start Date 07/12/21 Plan of Care End Date 10/12/21 Next Visit Focus/Plan Next Note Type Treatment Note Next Visit Plan cont to work on standing strenth and balacne
--- NOTE | 2021-08-23 12:02 | PT.OTN ---
Current Diagnoses Low back pain, unspecified (08/23/21) Muscle weakness (generalized) (08/23/21) Difficulty in walking, not elsewhere classified (08/23/21) Other abnormalities of gait and mobility (08/23/21) Abnormal posture (08/23/21) History of falling (08/23/21) Physical Therapy Treatment Note PT-OP-A Visit Information Start: 07/11/21 18:42 Freq: Status: Active Protocol: Document 08/23/21 11:23 [facility] (Rec: 08/23/21 12:00 [facility] [id number]) Out-Patient Physical Therapy Visit Information Visit Information Visit Type Treatment Note Visit Note 06/18 Visit Start Time 11:20 Visit Stop Time 12:00 Total Visit Minutes 40 Visit Number 4 Number of IMMIGRATION OFFICER Visits 0 PT-OP-B Current Condition Start: 07/11/21 18:42 Freq: Status: Active Protocol: Document 07/12/21 11:20 [facility] (Rec: 07/12/21 12:14 [facility] [id number]) Current Condition History of Current Condition Onset Date 2 years Current Complaints dec balance and weakness History of Current Condition Pt reports its been about 2 years that he has c/o being dizzy. He can't sit on a chair w/o a back on it d/t falling backwards and the same at EOB. He has fallen to the ground a few times. Pt reports spending multiple days in [facility] ([facility] then [place] [address]) then 6 days the rehab for COVID then had therapies for a while. He has done some walkign but reports not near enough. Reports he doesn't feel like he has any strength at all in his body. He has to rest after doing any much activity. He fell lifting L leg to get into the car. He has had 3-4 falls in the past year. When pt notes he gets dizzy,his body just feels off balance. Denies any spinning. He feels woozy if he bends over and stands up. If he uses a public restroom, he has to hang to the wall to balance. Pt reprots this has been a gradual decrease in balance. Pt reports using a walking stick and 4WW for out of the house but in the house he reaches for furniture. On Saturdays, he often goes to his granddgt's soccer games. He feels okay on the grass as long as his walker is with him . Reports it can be difficult getting in/out of bed. Pt had spinal fusion at L4-5 about 4 or so years ago and reports he does still have back pain. Prior Treatments and Tests IMPRESSION: 1. No acute intracranial disease process. 2. Ventriculomegaly which could be due to central volume loss versus normal pressure hydrocephalus. Recommend correlation with clinical data . 3. No areas of acute or chronic infarction. 4. Diffuse cerebral volume loss. 5. Minimal periventricular and subcortical white matter chronic microvascular ischemic change. PT-OP-C Subjective Start: 07/11/21 18:42 Freq: Status: Active Protocol: Document 08/23/21 11:23 [facility] (Rec: 08/23/21 12:00 [facility] [id number]) OP-PT Subjective Patient Comments Patient Comments Pt reports he feels like he just got over the soreness from last session. Hasn't done much exercise at home except getting up and moving around. PT-OP-D Balance Start: 07/11/21 18:42 Freq: Status: Active Protocol: Document 07/12/21 11:20 [facility] (Rec: 07/12/21 12:14 [facility] [id number]) Balance Tests Lombardi Balance Test Lombardi Balance Test Score 36 PT-OP-E Functional Tests Start: 07/11/21 18:42 Freq: Status: Active Protocol: Document 07/12/21 11:20 [facility] (Rec: 07/12/21 12:14 [facility] [id number]) Functional Tests 30 Second Sit to Stand Test Score 5 Comments w/UEs silver chair Dynamic Gait Index (DGI) Score 3 Five Times Sit to Stand Test Score 32 sec Comments w/UEs silver chair PT-OP-G Mobility & Gait Start: 07/11/21 18:42 Freq: Status: Active Protocol: Document 07/12/21 11:20 [facility] (Rec: 07/12/21 12:14 [facility] [id number]) OP Mobility Evaluation Bed Mobility Supine to and from Sit log roll into and out of bed- slow Transfers Sit to Stand requires UE use OP Gait Assessment Comments Gait Comments Pt amb w/single walking stick in L hand w/L lat lean of trunk in standing and dec B foot clearance PT-OP-J Posture/Palpation/Skin Start: 07/11/21 18:42 Freq: Status: Active Protocol: Document 07/12/21 11:20 [facility] (Rec: 07/12/21 12:14 [facility] [id number]) Posture Evaluation Comments Posture Comments pt stands fwd flexed at hips and lat lean to L PT-OP-M Strength Start: 07/11/21 18:42 Freq: Status: Active Protocol: Document 07/12/21 11:20 [facility] (Rec: 07/12/21 12:14 [facility] [id number]) Hip Strength Hip Manual Muscle Testing Right Flexion (L2) 3 Fair Abduction 3- Fair- External Rotation 3+ Fair+ Internal Rotation 3+ Fair+ Left Flexion (L2) 3 Fair Abduction 4- Good- External Rotation 3+ Fair+ Internal Rotation 3+ Fair+ Knee Strength Knee Manual Muscle Testing Right Flexion (S2) 3+ Fair+ Extension (L3) 3+ Fair+ Left Flexion (S2) 3+ Fair+ Extension (L3) 3+ Fair+ Ankle/Foot Strength Ankle and Foot Manual Muscle Testing Right Dorsiflexion (L4) 4- Good- Plantarflexion (S1) 4- Good- Left Dorsiflexion (L4) 3+ Fair+ Plantarflexion (S1) 3+ Fair+ PT-OP-Q Treatments Start: 07/11/21 18:42 Freq: Status: Active Protocol: Document 08/23/21 11:23 [facility] (Rec: 08/23/21 12:00 [facility] [id number]) Cardio Equipment Recumbent Stepper (Sci-Fit) Duration (Minutes) 6 Resistance 5 Seat Position 12 Gym Equipment Shuttle Recovery Bilateral Squats Resistance 87# Shuttle Recovery Platform Stable Reps/Time 2x15 Shuttle Balance blue clips Details w/head turns Comments fwd & side: WBOS &NBOS fwd: staggered stance B Therapeutic Exercises Sitting Exercises hip ER Side bilateral Equipment Used L2 Reps/Minutes 15 hip add Side bilateral Equipment Used ball Reps/Minutes 10 sec x10 Standing Exercises heel raises Side bilateral Reps/Minutes 20 hip ext Side bilateral Equipment Used rail Reps/Minutes 12 Hip abd Side bilateral Equipment Used rail Reps/Minutes 12 sit to stand Side bilateral Reps/Minutes 12 Comments hands on knees Neuro Re-Education Treatment Balance Activities SLS Comments toe taps to 8 in step x15 B hurdles Comments 1.fwd over 6 x8 2. side step over 6 x2 B w/1 TILE LAYER SUPERVISOR on rail as needed PT-OP-T Assessment and Plan Start: 07/11/21 18:42 Freq: Status: Active Protocol: Document 08/23/21 11:23 [facility] (Rec: 08/23/21 12:00 [facility] [id number]) Physical Therapy Assessment Goals sit to stand Short Term Goal (STG) Pt will be able to complete 5x sit to stand from 17 in chair w/o use of hands. STG Duration 09/08/21 Jail Goal (LTG) Pt will be able to complete 11 sit to stands from 17 in chair w/o hands in 30 sec LTG Duration 10/12/21 back pain Foreign Student Adviser Teacher Goal (LTG) Pt will report no greater than 2/10 LBP with standing and walking. LTG Duration 10/12/21 DGI Impairment Short Term Goal (STG) Pt will imrpove score to at least 17 to show dec risk for falls STG Duration 08/23/21 Foreign Student Adviser Teacher Goal (LTG) Pt will improve score to at least 20 to show dec risk for falls LTG Duration 10/12/21 strength Short Term Goal (STG) Pt will be indep w/HEP STG Duration 08/23/21 Jail Goal (LTG) Pt will score at least 4/5 BLE strength in all MMT to show improved strength in order to imrpove pt ability to do typical daily activities w/o pain. LTG Duration 10/12/21 LOMBARDI Impairment 36 Short Term Goal (STG) Pt will score at least 45 on LOMBARDI to show pt is a safe ambulator w/o AD and is less likely to fall. STG Duration 09/08/21 Foreign Student Adviser Teacher Goal (LTG) Pt will score at least 50 on LOMBARDI to show pt is a safe ambulator in community/ outdoors and is less likely to fall. LTG Duration 10/12/21 Assessment Summary Assessment Pt did better with balance activities today and had less use of rail w/hurdles sidestep and was able to try trials of head turns when standing on balance board today. He still does fatigue quickly and requires seated rest breaks so worked on seated exercises during this time. Physical Therapy Plan Frequency and Duration Frequency of Treatment 2x/Week Duration of Treatment 3 months Plan of Care Start Date 07/12/21 Plan of Care End Date 10/12/21 Next Visit Focus/Plan Next Note Type Treatment Note Next Visit Plan cont to work on standing strereyh and noah
--- NOTE | 2021-08-28 12:37 | PT.OTN ---
Current Diagnoses Low back pain, unspecified (08/28/21) Muscle weakness (generalized) (08/28/21) Difficulty in walking, not elsewhere classified (08/28/21) Other abnormalities of gait and mobility (08/28/21) Abnormal posture (08/28/21) History of falling (08/28/21) Physical Therapy Treatment Note PT-OP-A Visit Information Start: 07/11/21 18:42 Freq: Status: Active Protocol: Document 08/28/21 11:51 MA (Rec: 08/28/21 12:35 MA [id number]) Out-Patient Physical Therapy Visit Information Visit Information Visit Type Treatment Note Visit Note 07/18 Visit Start Time 11:50 Visit Stop Time 12:30 Total Visit Minutes 40 Visit Number 5 Number of COIL MACHINE OPERATOR Visits 1 PT-OP-B Current Condition Start: 07/11/21 18:42 Freq: Status: Active Protocol: Document 07/12/21 11:20 [facility] (Rec: 07/12/21 12:14 [facility] [id number]) Current Condition History of Current Condition Onset Date 2 years Current Complaints dec balance and weakness History of Current Condition Pt reports its been about 2 years that he has c/o being dizzy. He can't sit on a chair w/o a back on it d/t falling backwards and the same at EOB. He has fallen to the ground a few times. [facility] then [place] [id number] then 6 days the rehab for COVID then had therapies for a while. He has done some walkign but reports not near enough. Reports he doesn't feel like he has any strength at all in his body. He has to rest after doing any much activity. He fell lifting L leg to get into the car. He has had 3-4 falls in the past year. When pt notes he gets dizzy,his body just feels off balance. Denies any spinning. He feels woozy if he bends over and stands up. If he uses a public restroom, he has to hang to the wall to balance. Pt reprots this has been a gradual decrease in balance. Pt reports using a walking stick and 4WW for out of the house but in the house he reaches for furniture. On Saturdays, he often goes to his granddgt's soccer games. He feels okay on the grass as long as his walker is with him . Reports it can be difficult getting in/out of bed. Pt had spinal fusion at L4-5 about 4 or so years ago and reports he does still have back pain. Prior Treatments and Tests IMPRESSION: 1. No acute intracranial disease process. 2. Ventriculomegaly which could be due to central volume loss versus normal pressure hydrocephalus. Recommend correlation with clinical data . 3. No areas of acute or chronic infarction. 4. Diffuse cerebral volume loss. 5. Minimal periventricular and subcortical white matter chronic microvascular ischemic change. PT-OP-C Subjective Start: 07/11/21 18:42 Freq: Status: Active Protocol: Document 08/28/21 11:51 MA (Rec: 08/28/21 12:35 MA [id number]) OP-PT Subjective Patient Comments Patient Comments Pt has not had any falls since last fall about 3 weeks ago. PT-OP-D Balance Start: 07/11/21 18:42 Freq: Status: Active Protocol: Document 07/12/21 11:20 [facility] (Rec: 07/12/21 12:14 [facility] [id number]) Balance Tests Lombardi Balance Test Lombardi Balance Test Score 36 PT-OP-E Functional Tests Start: 07/11/21 18:42 Freq: Status: Active Protocol: Document 07/12/21 11:20 [facility] (Rec: 07/12/21 12:14 [facility] [id number]) Functional Tests 30 Second Sit to Stand Test Score 5 Comments w/UEs silver chair Dynamic Gait Index (DGI) Score 3 Five Times Sit to Stand Test Score 32 sec Comments w/UEs silver chair PT-OP-G Mobility & Gait Start: 07/11/21 18:42 Freq: Status: Active Protocol: Document 07/12/21 11:20 [facility] (Rec: 07/12/21 12:14 [facility] [id number]) OP Mobility Evaluation Bed Mobility Supine to and from Sit log roll into and out of bed- slow Transfers Sit to Stand requires UE use OP Gait Assessment Comments Gait Comments Pt amb w/single walking stick in L hand w/L lat lean of trunk in standing and dec B foot clearance PT-OP-J Posture/Palpation/Skin Start: 07/11/21 18:42 Freq: Status: Active Protocol: Document 07/12/21 11:20 [facility] (Rec: 07/12/21 12:14 [facility] [id number]) Posture Evaluation Comments Posture Comments pt stands fwd flexed at hips and lat lean to L PT-OP-M Strength Start: 07/11/21 18:42 Freq: Status: Active Protocol: Document 07/12/21 11:20 [facility] (Rec: 07/12/21 12:14 [facility] [id number]) Hip Strength Hip Manual Muscle Testing Right Flexion (L2) 3 Fair Abduction 3- Fair- External Rotation 3+ Fair+ Internal Rotation 3+ Fair+ Left Flexion (L2) 3 Fair Abduction 4- Good- External Rotation 3+ Fair+ Internal Rotation 3+ Fair+ Knee Strength Knee Manual Muscle Testing Right Flexion (S2) 3+ Fair+ Extension (L3) 3+ Fair+ Left Flexion (S2) 3+ Fair+ Extension (L3) 3+ Fair+ Ankle/Foot Strength Ankle and Foot Manual Muscle Testing Right Dorsiflexion (L4) 4- Good- Plantarflexion (S1) 4- Good- Left Dorsiflexion (L4) 3+ Fair+ Plantarflexion (S1) 3+ Fair+ PT-OP-Q Treatments Start: 07/11/21 18:42 Freq: Status: Active Protocol: Document 08/28/21 11:51 MA (Rec: 08/28/21 12:35 MA [id number]) Cardio Equipment Recumbent Stepper (Sci-Fit) Duration (Minutes) 6 Resistance 5 Seat Position 12 Gym Equipment Shuttle Balance blue clips Comments fwd & side: WBOS &NBOS- EO/EC trials, head turns/nods with EO fwd: staggered stance B Therapeutic Exercises Sitting Exercises LAQ Sitting Exercise Name knee ext Side bilateral Reps/Minutes x12 hip ER Side bilateral Equipment Used L2 Reps/Minutes 20 hip add Side bilateral Equipment Used ball Reps/Minutes 10 sec x10 Standing Exercises Step Ups Side bilateral Equipment Used 6 stair Reps/Minutes x10 ea Comments cues for lifting LLE, no rails heel raises Side bilateral Reps/Minutes 20 hip ext Side bilateral Equipment Used rail Reps/Minutes 12 Comments heavy cues to for knee ext Hip abd Side bilateral Equipment Used rail Reps/Minutes 12 sit to stand Side bilateral Reps/Minutes 12 Comments hands on knees Neuro Re-Education Treatment Balance Activities SLS Comments toe taps to 8 in step x15 B- cues for posture hurdles Comments 1.fwd over 6 hurdles x6 2. side step over 6 hurdles x2 B PT-OP-T Assessment and Plan Start: 07/11/21 18:42 Freq: Status: Active Protocol: Document 08/28/21 11:51 MA (Rec: 08/28/21 12:35 MA [id number]) Physical Therapy Assessment Goals sit to stand Short Term Goal (STG) Pt will be able to complete 5x sit to stand from 17 in chair w/o use of hands. STG Duration 09/08/21 Fpc Goal (LTG) Pt will be able to complete 11 sit to stands from 17 in chair w/o hands in 30 sec LTG Duration 10/12/21 back pain Fpc Goal (LTG) Pt will report no greater than 2/10 LBP with standing and walking. LTG Duration 10/12/21 DGI Impairment Short Term Goal (STG) Pt will imrpove score to at least 17 to show dec risk for falls STG Duration 08/23/21 Fellmongery Worker Goal (LTG) Pt will improve score to at least 20 to show dec risk for falls LTG Duration 10/12/21 strength Short Term Goal (STG) Pt will be indep w/HEP STG Duration 08/23/21 Fpc Goal (LTG) Pt will score at least 4/5 BLE strength in all MMT to show improved strength in order to imrpove pt ability to do typical daily activities w/o pain. LTG Duration 10/12/21 LOMBARDI Impairment 36 Short Term Goal (STG) Pt will score at least 45 on LOMBARDI to show pt is a safe ambulator w/o AD and is less likely to fall. STG Duration 09/08/21 Fellmongery Worker Goal (LTG) Pt will score at least 50 on LOMBARDI to show pt is a safe ambulator in community/ outdoors and is less likely to fall. LTG Duration 10/12/21 Assessment Summary Assessment Pt is able to complete step ups without using rail for assistance. He is does well alternating between seated exercises and standing exercises. During standing hip ext, pt requires heavy cues for glute engagement, cues for keeping knee extended, and cues for control or he will swing leg using momentum and rotate hips. Pt tends to walk with decreased hip and knee flexion. Worked on improving gait, not shuffling feet, between all exercises to decrease fall risk at home. Physical Therapy Plan Frequency and Duration Frequency of Treatment 2x/Week Duration of Treatment 3 months Plan of Care Start Date 07/12/21 Plan of Care End Date 10/12/21 Therapeutic Interventions Therapeutic Interventions Aquatic Therapy,Balance Training,Gait Training,Home Exercise Program,Joint Mobilizations,Manual Therapy, Neuromuscular Re-education, Patient/Caregiver Education, Self-Care/Home Management,Soft Tissue Mobilization,Taping, Therapeutic Activities, Therapeutic Exercises, Vestibular Rehabilitation Modalities Cold Pack/Ice Massage,Electric Stimulation,Hot Packs Next Visit Focus/Plan Next Note Type Treatment Note Next Visit Plan cont to work on standing strength and balance. Continue with step ups and step taps.
--- NOTE | 2021-08-30 12:22 | PT.OTN ---
Current Diagnoses Low back pain, unspecified (08/30/21) Muscle weakness (generalized) (08/30/21) Difficulty in walking, not elsewhere classified (08/30/21) Other abnormalities of gait and mobility (08/30/21) Abnormal posture (08/30/21) History of falling (08/30/21) Physical Therapy Treatment Note PT-OP-A Visit Information Start: 07/11/21 18:42 Freq: Status: Active Protocol: Document 08/30/21 11:26 [facility] (Rec: 08/30/21 12:21 [facility] [id number]) Out-Patient Physical Therapy Visit Information Visit Information Visit Type Treatment Note Visit Note 08/18 Visit Start Time 11: Visit Stop Time 12:01 Total Visit Minutes 39 Visit Number 6 Number of PER DIEM NURSE Visits 0 PT-OP-B Current Condition Start: 07/11/21 18:42 Freq: Status: Active Protocol: Document 07/12/21 11:20 [facility] (Rec: 07/12/21 12:14 [facility] [id number]) Current Condition History of Current Condition Onset Date 2 years Current Complaints dec balance and weakness History of Current Condition Pt reports its been about 2 years that he has c/o being dizzy. He can't sit on a chair w/o a back on it d/t falling backwards and the same at EOB. He has fallen to the ground a few times. Pt reports spending multiple days in [facility] ([facility] then [place] [address]) then 6 days the rehab for COVID then had therapies for a while. He has done some walkign but reports not near enough. Reports he doesn't feel like he has any strength at all in his body. He has to rest after doing any much activity. He fell lifting L leg to get into the car. He has had 3-4 falls in the past year. When pt notes he gets dizzy,his body just feels off balance. Denies any spinning. He feels woozy if he bends over and stands up. If he uses a public restroom, he has to hang to the wall to balance. Pt reprots this has been a gradual decrease in balance. Pt reports using a walking stick and 4WW for out of the house but in the house he reaches for furniture. On Saturdays, he often goes to his granddgt's soccer games. He feels okay on the grass as long as his walker is with him . Reports it can be difficult getting in/out of bed. Pt had spinal fusion at L4-5 about 4 or so years ago and reports he does still have back pain. Prior Treatments and Tests IMPRESSION: 1. No acute intracranial disease process. 2. Ventriculomegaly which could be due to central volume loss versus normal pressure hydrocephalus. Recommend correlation with clinical data . 3. No areas of acute or chronic infarction. 4. Diffuse cerebral volume loss. 5. Minimal periventricular and subcortical white matter chronic microvascular ischemic change. PT-OP-C Subjective Start: 07/11/21 18:42 Freq: Status: Active Protocol: Document 08/30/21 11:26 [facility] (Rec: 08/30/21 12:21 [facility] [id number]) OP-PT Subjective Patient Comments Patient Comments Pt reports soreness last time only lasted 1.5 weeks. PT-OP-D Balance Start: 07/11/21 18:42 Freq: Status: Active Protocol: Document 07/12/21 11:20 [facility] (Rec: 07/12/21 12:14 [facility] [id number]) Balance Tests Mendez Balance Test Mendez Balance Test Score 36 PT-OP-E Functional Tests Start: 07/11/21 18:42 Freq: Status: Active Protocol: Document 07/12/21 11:20 [facility] (Rec: 07/12/21 12:14 [facility] [id number]) Functional Tests 30 Second Sit to Stand Test Score 5 Comments w/UEs silver chair Dynamic Gait Index (DGI) Score 3 Five Times Sit to Stand Test Score 32 sec Comments w/UEs silver chair PT-OP-G Mobility & Gait Start: 07/11/21 18:42 Freq: Status: Active Protocol: Document 07/12/21 11:20 [facility] (Rec: 07/12/21 12:14 [facility] [id number]) OP Mobility Evaluation Bed Mobility Supine to and from Sit log roll into and out of bed- slow Transfers Sit to Stand requires UE use OP Gait Assessment Comments Gait Comments Pt amb w/single walking stick in L hand w/L lat lean of trunk in standing and dec B foot clearance PT-OP-J Posture/Palpation/Skin Start: 07/11/21 18:42 Freq: Status: Active Protocol: Document 07/12/21 11:20 [facility] (Rec: 07/12/21 12:14 [facility] [id number]) Posture Evaluation Comments Posture Comments pt stands fwd flexed at hips and lat lean to L PT-OP-M Strength Start: 07/11/21 18:42 Freq: Status: Active Protocol: Document 07/12/21 11:20 [facility] (Rec: 07/12/21 12:14 [facility] [id number]) Hip Strength Hip Manual Muscle Testing Right Flexion (L2) 3 Fair Abduction 3- Fair- External Rotation 3+ Fair+ Internal Rotation 3+ Fair+ Left Flexion (L2) 3 Fair Abduction 4- Good- External Rotation 3+ Fair+ Internal Rotation 3+ Fair+ Knee Strength Knee Manual Muscle Testing Right Flexion (S2) 3+ Fair+ Extension (L3) 3+ Fair+ Left Flexion (S2) 3+ Fair+ Extension (L3) 3+ Fair+ Ankle/Foot Strength Ankle and Foot Manual Muscle Testing Right Dorsiflexion (L4) 4- Good- Plantarflexion (S1) 4- Good- Left Dorsiflexion (L4) 3+ Fair+ Plantarflexion (S1) 3+ Fair+ PT-OP-Q Treatments Start: 07/11/21 18:42 Freq: Status: Active Protocol: Document 08/30/21 11:26 [facility] (Rec: 08/30/21 12:21 [facility] [id number]) Cardio Equipment Recumbent Stepper (Sci-Fit) Duration (Minutes) 6 Resistance 5 Seat Position 12 Gym Equipment Shuttle Balance blue clips Details w/balloon toss. Comments fwd & side: WBOS &NBOS fwd: staggered stance B Therapeutic Exercises Sitting Exercises march Side bilateral Reps/Minutes 15 ea APs Side bilateral Reps/Minutes 30 LAQ Sitting Exercise Name knee ext Side bilateral Reps/Minutes x12 hip ER Side bilateral Equipment Used L2 Reps/Minutes 20 hip add Side bilateral Equipment Used ball Reps/Minutes 10 sec x10 Standing Exercises Step Ups Side bilateral Equipment Used 6 stair Reps/Minutes x10 ea Comments cues for posture & foot placement, no rails heel raises Side bilateral Reps/Minutes 20 hip ext Side bilateral Equipment Used rail Reps/Minutes 12 Comments heavy cues to for knee ext Hip abd Side bilateral Resistance yellow tband Equipment Used rail Reps/Minutes 8 sit to stand Side bilateral Reps/Minutes 12 Comments hands on knees Neuro Re-Education Treatment Balance Activities SLS Comments toe taps to 8 in step x15 B- cues for posture hurdles Comments 1.fwd over 6 hurdles x6 2. side step over 6 hurdles x2 B PT-OP-T Assessment and Plan Start: 07/11/21 18:42 Freq: Status: Active Protocol: Document 08/30/21 11:26 [facility] (Rec: 08/30/21 12:21 [facility] [id number]) Physical Therapy Assessment Assessment Summary Assessment pt was very fatigued by end w/ requiring more cues for lifting feet when walking along w/posture. He did well with hurdles today but was challenged more w/sidestep. Significant challenge w/ balloon volley on balance board. Physical Therapy Plan Frequency and Duration Frequency of Treatment 2x/Week Duration of Treatment 3 months Plan of Care Start Date 07/12/21 Plan of Care End Date 10/12/21 Next Visit Focus/Plan Next Note Type Treatment Note Next Visit Plan cont to work on standing strength and balance.
--- NOTE | 2021-09-18 11:15 | PT.OTN ---
Current Diagnoses Low back pain, unspecified (09/18/21) Muscle weakness (generalized) (09/18/21) Difficulty in walking, not elsewhere classified (09/18/21) Other abnormalities of gait and mobility (09/18/21) Abnormal posture (09/18/21) History of falling (09/18/21) Physical Therapy Treatment Note PT-OP-A Visit Information Start: 07/11/21 18:42 Freq: Status: Active Protocol: Document 09/18/21 10:27 [facility] (Rec: 09/18/21 11:15 [facility] [id number]) Out-Patient Physical Therapy Visit Information Visit Information Visit Type Treatment Note Visit Note 09/17 Visit Start Time 10:29 Visit Stop Time 11:13 Total Visit Minutes 44 Visit Number 7 Number of RAT FARMER Visits 0 PT-OP-B Current Condition Start: 07/11/21 18:42 Freq: Status: Active Protocol: Document 07/12/21 11:20 [facility] (Rec: 07/12/21 12:14 [facility] [id number]) Current Condition History of Current Condition Onset Date 2 years Current Complaints dec balance and weakness History of Current Condition Pt reports its been about 2 years that he has c/o being dizzy. He can't sit on a chair w/o a back on it d/t falling backwards and the same at EOB. He has fallen to the ground a few times. Pt reports spending multiple days [facility] ([facility] then [place] [address]) then 6 days the rehab for COVID then had therapies for a while. He has done some walkign but reports not near enough. Reports he doesn't feel like he has any strength at all in his body. He has to rest after doing any much activity. He fell lifting L leg to get into the car. He has had 3-4 falls in the past year. When pt notes he gets dizzy,his body just feels off balance. Denies any spinning. He feels woozy if he bends over and stands up. If he uses a public restroom, he has to hang to the wall to balance. Pt reprots this has been a gradual decrease in balance. Pt reports using a walking stick and 4WW for out of the house but in the house he reaches for furniture. On Saturdays, he often goes to his granddgt's soccer games. He feels okay on the grass as long as his walker is with him . Reports it can be difficult getting in/out of bed. Pt had spinal fusion at L4-5 about 4 or so years ago and reports he does still have back pain. Prior Treatments and Tests IMPRESSION: 1. No acute intracranial disease process. 2. Ventriculomegaly which could be due to central volume loss versus normal pressure hydrocephalus. Recommend correlation with clinical data . 3. No areas of acute or chronic infarction. 4. Diffuse cerebral volume loss. 5. Minimal periventricular and subcortical white matter chronic microvascular ischemic change. PT-OP-C Subjective Start: 07/11/21 18:42 Freq: Status: Active Protocol: Document 09/18/21 10:27 [facility] (Rec: 09/18/21 11:15 [facility] [id number]) OP-PT Subjective Patient Comments Patient Comments Pt reports not compliant w/ exercises. Pt reports prostatectomy 2 weeks ago which is why he has not been to recent appointments. PT-OP-D Balance Start: 07/11/21 18:42 Freq: Status: Active Protocol: Document 07/12/21 11:20 [facility] (Rec: 07/12/21 12:14 [facility] [id number]) Balance Tests Lombardi Balance Test Lombardi Balance Test Score 36 PT-OP-E Functional Tests Start: 07/11/21 18:42 Freq: Status: Active Protocol: Document 07/12/21 11:20 [facility] (Rec: 07/12/21 12:14 [facility] [id number]) Functional Tests 30 Second Sit to Stand Test Score 5 Comments w/UEs silver chair Dynamic Gait Index (DGI) Score 3 Five Times Sit to Stand Test Score 32 sec Comments w/UEs silver chair PT-OP-G Mobility & Gait Start: 07/11/21 18:42 Freq: Status: Active Protocol: Document 07/12/21 11:20 [facility] (Rec: 07/12/21 12:14 [facility] [id number]) OP Mobility Evaluation Bed Mobility Supine to and from Sit log roll into and out of bed- slow Transfers Sit to Stand requires UE use OP Gait Assessment Comments Gait Comments Pt amb w/single walking stick in L hand w/L lat lean of trunk in standing and dec B foot clearance PT-OP-J Posture/Palpation/Skin Start: 05/03/22 18:42 Freq: Status: Active Protocol: Document 07/12/21 11:20 [facility] (Rec: 07/12/21 12:14 [facility] [id number]) Posture Evaluation Comments Posture Comments pt stands fwd flexed at hips and lat lean to L PT-OP-M Strength Start: 07/11/21 18:42 Freq: Status: Active Protocol: Document 07/12/21 11:20 [facility] (Rec: 07/12/21 12:14 [facility] [id number]) Hip Strength Hip Manual Muscle Testing Right Flexion (L2) 3 Fair Abduction 3- Fair- External Rotation 3+ Fair+ Internal Rotation 3+ Fair+ Left Flexion (L2) 3 Fair Abduction 4- Good- External Rotation 3+ Fair+ Internal Rotation 3+ Fair+ Knee Strength Knee Manual Muscle Testing Right Flexion (S2) 3+ Fair+ Extension (L3) 3+ Fair+ Left Flexion (S2) 3+ Fair+ Extension (L3) 3+ Fair+ Ankle/Foot Strength Ankle and Foot Manual Muscle Testing Right Dorsiflexion (L4) 4- Good- Plantarflexion (S1) 4- Good- Left Dorsiflexion (L4) 3+ Fair+ Plantarflexion (S1) 3+ Fair+ PT-OP-Q Treatments Start: 07/11/21 18:42 Freq: Status: Active Protocol: Document 09/18/21 10:27 [facility] (Rec: 09/18/21 11:15 [facility] [id number]) Cardio Equipment Recumbent Stepper (Sci-Fit) Duration (Minutes) 6 Resistance 5 Seat Position 12 Gym Equipment Shuttle Balance blue clips Details w/balloon toss. Comments fwd & side: WBOS fwd: staggered stance B Therapeutic Exercises Sitting Exercises march Side bilateral Equipment Used L2 Reps/Minutes 15 ea APs Side bilateral Reps/Minutes 30 LAQ Sitting Exercise Name knee ext Side bilateral Reps/Minutes x15 hip ER Side bilateral Equipment Used L2 Reps/Minutes 20 hip add Side bilateral Equipment Used ball Reps/Minutes 10 sec x10 Standing Exercises heel raises Side bilateral Reps/Minutes 20 hip ext Side bilateral Resistance yellow tband Equipment Used rail Reps/Minutes 12 Comments heavy cues to for knee ext & posture Hip abd Side bilateral Resistance yellow tband Equipment Used rail Reps/Minutes 12 Comments heavy cues for posture sit to stand Side bilateral Reps/Minutes 12 Comments hands on knees Neuro Re-Education Treatment Balance Activities tilt board Details fwd back tilts SLS Comments toe taps to 8 in step x15 B- cues for posture hurdles Comments 1.fwd over 6 hurdles x6 2. side step over 6 hurdles x2 B PT-OP-T Assessment and Plan Start: 07/11/21 18:42 Freq: Status: Active Protocol: Document 09/18/21 10:27 [facility] (Rec: 09/18/21 11:15 [facility] [id number]) Physical Therapy Assessment Goals sit to stand Short Term Goal (STG) Pt will be able to complete 5x sit to stand from 17 in chair w/o use of hands. STG Duration 09/08/21 Reverse Unit Operator Goal (LTG) Pt will be able to complete 11 sit to stands from 17 in chair w/o hands in 30 sec LTG Duration 10/12/21 back pain Shelter Goal (LTG) Pt will report no greater than 2/10 LBP with standing and walking. LTG Duration 10/12/21 DGI Impairment Short Term Goal (STG) Pt will imrpove score to at least 17 to show dec risk for falls STG Duration 08/23/21 Shelter Goal (LTG) Pt will improve score to at least 20 to show dec risk for falls LTG Duration 10/12/21 strength Short Term Goal (STG) Pt will be indep w/HEP STG Duration 08/23/21 Shelter Goal (LTG) Pt will score at least 4/5 BLE strength in all MMT to show improved strength in order to imrpove pt ability to do typical daily activities w/o pain. LTG Duration 10/12/21 LOMBARDI Impairment 36 Short Term Goal (STG) Pt will score at least 45 on LOMBARDI to show pt is a safe ambulator w/o AD and is less likely to fall. STG Duration 09/08/21 Shelter Goal (LTG) Pt will score at least 50 on LOMBARDI to show pt is a safe ambulator in community/ outdoors and is less likely to fall. LTG Duration 10/12/21 Assessment Summary Assessment Pt still fatigues with activities today and does still require a lot of cueing for posture when walking and doing exercises. He cont to have a lot of difficulty w/ balance. Physical Therapy Plan Frequency and Duration Frequency of Treatment 2x/Week Duration of Treatment 3 months Plan of Care Start Date 07/12/21 Plan of Care End Date 10/12/21 Next Visit Focus/Plan Next Note Type Treatment Note Next Visit Plan cont to work on standing strength and balance.
--- NOTE | 2021-09-25 18:01 | PT.OPDS ---
Current Diagnoses Low back pain, unspecified (09/18/21) Muscle weakness (generalized) (09/18/21) Difficulty in walking, not elsewhere classified (09/18/21) Other abnormalities of gait and mobility (09/18/21) Abnormal posture (09/18/21) History of falling (09/18/21) Visit Care Team Role Provider Type Erika Pedraza PA-C Primary Care Provider Non-Staff Specialty: Internal Medicine Address: [address] [place] [address], [id number] Email: [email or web address] Man Templeton MD Attending Provider Non-Staff Referring Provider Specialty: Neurology Address: [facility] [place], [address] Email: Visit Number Visit Number 7 Discharge Summary PT-OP-B Current Condition Start: 07/11/21 18:42 Freq: Status: Active Protocol: Document 07/12/21 11:20 [facility] (Rec: 07/12/21 12:14 [facility] [id number]) Current Condition History of Current Condition Onset Date 2 years Current Complaints dec balance and weakness History of Current Condition Pt reports its been about 2 years that he has c/o being dizzy. He can't sit on a chair w/o a back on it d/t falling backwards and the same at EOB. He has fallen to the ground a few times. Pt reports spending multiple days in [facility] ([place] [address]) then 6 days the rehab for COVID then had therapies for a while. He has done some walkign but reports not near enough. Reports he doesn't feel like he has any strength at all in his body. He has to rest after doing any much activity. He fell lifting L leg to get into the car. He has had 3-4 falls in the past year. When pt notes he gets dizzy,his body just feels off balance. Denies any spinning. He feels woozy if he bends over and stands up. If he uses a public restroom, he has to hang to the wall to balance. Pt reprots this has been a gradual decrease in balance. Pt reports using a walking stick and 4WW for out of the house but in the house he reaches for furniture. On Saturdays, he often goes to his granddgt's soccer games. He feels okay on the grass as long as his walker is with him . Reports it can be difficult getting in/out of bed. Pt had spinal fusion at L4-5 about 4 or so years ago and reports he does still have back pain. Prior Treatments and Tests IMPRESSION: 1. No acute intracranial disease process. 2. Ventriculomegaly which could be due to central volume loss versus normal pressure hydrocephalus. Recommend correlation with clinical data . 3. No areas of acute or chronic infarction. 4. Diffuse cerebral volume loss. 5. Minimal periventricular and subcortical white matter chronic microvascular ischemic change. PT-OP-C Subjective Start: 07/11/21 18:42 Freq: Status: Active Protocol: Document 09/18/21 10:27 [facility] (Rec: 09/18/21 11:15 [facility] [id number]) OP-PT Subjective Patient Comments Patient Comments Pt reports not compliant w/ exercises. Pt reports prostatectomy 2 weeks ago which is why he has not been to recent appointments. PT-OP-D Balance Start: 07/11/21 18:42 Freq: Status: Active Protocol: Document 07/12/21 11:20 [facility] (Rec: 07/12/21 12:14 [facility] [id number]) Balance Tests Mendez Balance Test Mendez Balance Test Score 36 PT-OP-E Functional Tests Start: 07/11/21 18:42 Freq: Status: Active Protocol: Document 07/12/21 11:20 [facility] (Rec: 07/12/21 12:14 [facility] [id number]) Functional Tests 30 Second Sit to Stand Test Score 5 Comments w/UEs silver chair Dynamic Gait Index (DGI) Score 3 Five Times Sit to Stand Test Score 32 sec Comments w/UEs silver chair PT-OP-G Mobility & Gait Start: 07/11/21 18:42 Freq: Status: Active Protocol: Document 07/12/21 11:20 [facility] (Rec: 07/12/21 12:14 [facility] [id number]) OP Mobility Evaluation Bed Mobility Supine to and from Sit log roll into and out of bed- slow Transfers Sit to Stand requires UE use OP Gait Assessment Comments Gait Comments Pt amb w/single walking stick in L hand w/L lat lean of trunk in standing and dec B foot clearance PT-OP-J Posture/Palpation/Skin Start: 07/11/21 18:42 Freq: Status: Active Protocol: Document 07/12/21 11:20 [facility] (Rec: 07/12/21 12:14 [facility] [id number]) Posture Evaluation Comments Posture Comments pt stands fwd flexed at hips and lat lean to L PT-OP-M Strength Start: 07/11/21 18:42 Freq: Status: Active Protocol: Document 07/12/21 11:20 [facility] (Rec: 07/12/21 12:14 [facility] [id number]) Hip Strength Hip Manual Muscle Testing Right Flexion (L2) 3 Fair Abduction 3- Fair- External Rotation 3+ Fair+ Internal Rotation 3+ Fair+ Left Flexion (L2) 3 Fair Abduction 4- Good- External Rotation 3+ Fair+ Internal Rotation 3+ Fair+ Knee Strength Knee Manual Muscle Testing Right Flexion (S2) 3+ Fair+ Extension (L3) 3+ Fair+ Left Flexion (S2) 3+ Fair+ Extension (L3) 3+ Fair+ Ankle/Foot Strength Ankle and Foot Manual Muscle Testing Right Dorsiflexion (L4) 4- Good- Plantarflexion (S1) 4- Good- Left Dorsiflexion (L4) 3+ Fair+ Plantarflexion (S1) 3+ Fair+ PT-OP-T Assessment and Plan Start: 07/11/21 18:42 Freq: Status: Active Protocol: Document 09/25/21 17:59 [facility] (Rec: 09/25/21 18:01 [facility] [id number]) Physical Therapy Assessment Assessment Summary Assessment Pt was limited in progress w/ PT d/t sporadic ability to attend appointments and has only been seen 7x over the course of about 2 months. He was inconsistant w/HEP also. He cancelled the rest of the months appointments d/t infection and next month d/t out of town. He is DC at this time d/t no longer attending apointments. Pt will require new referral to resume PT Physical Therapy Plan Discharge Physical Therapy Discharge Reasons No Longer Attending PT Discharge Comments Pt cancelled all appts for rest of September and all of Oct
== END 2021-09-29 10:54 ==
LOC: PHYS 10:30
PROVIDERS: PCP Physician Assistant; Referring Provider Psychiatry & Neurology Neurology; Visit Provider Psychiatry & Neurology Neurology
DX: Z91.81 History of falling (principal); M54.50 Low back pain, unspecified; R26.2 Difficulty in walking, not elsewhere classified; R26.89 Other abnormalities of gait and mobility; R29.3 Abnormal posture; M62.81 Muscle weakness (generalized)
CPT/HCPCS: 97110; 97112; 97163

== ENCOUNTER → 2021-10-31 09:35 | Outpatient (CLI) | payer MEDICARE, OTHER, SELFPAY ==
--- NOTE | 2021-10-31 | DI.MRI.S_ITS ---
PROCEDURE: MR PELVIS WO/W CON INDICATIONS: PROSTATE CANCER TECHNIQUE: Coronal HASTE, axial T1 FSE with fat saturation, 3-plane nonbreath-hold T2 FSE. After the administration of contrast, dynamic axial, delayed axial and coronal VIBE or 2-D FLASH with fat saturation through the pelvis. Optional diffusion weighted imaging and ADC may be performed. COMPARISON: CT IVP 06/28/2020. FINDINGS: Image quality: Diffusion weighted and dynamic contrast enhanced images are diagnostic however some distortion is present at the upper gland. Prostate: Gland size is 5.0 x 4.0 x 5.8 cm; ellipsoid gland volume is 60 mL. A TURP defect is present. Mild linear and wedge-shaped ADC hypointensities present within the prostate peripheral zone with indistinct T2 correlates (PI-RADS 2 findings). Enlargement of the prostate transitional zone with findings typical of benign prostatic hyperplasia. No large lesion strongly stands out against background parenchymal changes of BPH on T2 weighted images (PI-RADS 2 findings). Genitourinary system: Bladder wall thickness is normal. Distal ureters are non distended. Bowel and peritoneum: No pathologic free pelvic fluid. Inferior colon and small bowel loops are normal in caliber. Nodes and vessels: No pelvic or inguinal adenopathy by size criteria. Prominent right external iliac chain medial group lymph node measuring 7 millimeters short axis is similar to slightly decreased compared to prior CT IVP. Iliac vessels are normal in caliber. Soft tissues: No inguinal hernias. Bones: Marrow demonstrates unremarkable overall signal, without lesions to suggest metastases. Prior lumbar spine fusion, partially imaged. IMPRESSION: 1. No large or highly suspicious focal prostate lesion identified by MRI. There is enlargement of the prostate transitional zone with findings typical of benign prostatic hyperplasia, with prostate volume estimated at 60 mL. 2. No suspicious lymph nodes visualized in the imaged pelvis. Dictated by: Mandeep Cortes M.D. on 10/31/2021 at 16:30 Approved by: Mandeep Cortes M.D. on 10/31/2021 at 16:57
--- NOTE | 2021-10-31 | DI.NM.S_ITS ---
PROCEDURE: NM BONE SCAN WHOLE BODY RADIOPHARMACEUTICAL: 18.5 mCi Tc-99m MDP IV. INDICATIONS: PROSTATE CANCER TECHNIQUE: Delayed whole-body scintigrams were obtained approximately 3-4 hours after intravenous injection of radiotracer. Anterior and posterior views were acquired from vertex to feet. Additional left and right oblique views of the pelvis were obtained. COMPARISON: None. FINDINGS: Degenerative uptake of radiotracer at the acromioclavicular and glenohumeral joints as well as the hip, knee, and ankle joints. No evidence of metastatic disease. IMPRESSION: No evidence of metastatic disease. Dictated by: Jim Mayfield M.D. on 10/31/2021 at 15:17 Transcribed by: KIMBERLY on 10/31/2021 at 15:20 Approved by: Jim Mayfield M.D. on 10/31/2021 at 16:36
== END ==
PROVIDERS: PCP Physician Assistant; Referring Provider Internal Medicine; Visit Provider Internal Medicine
DX: C61 Malignant neoplasm of prostate (principal)
CPT/HCPCS: 72197; 78306; A9503

== ENCOUNTER → 2022-02-16 10:35 | Outpatient (CLI) | payer MEDICARE, OTHER, SELFPAY ==
--- NOTE | 2022-02-16 | DI.RAD.S_ITS ---
PROCEDURE: XR CERVICAL SPINE 2V OR 3V INDICATIONS: Left arm pain, Cervical radiculopathy TECHNIQUE: 4 view(s) of the cervical spine were acquired. COMPARISON: None. FINDINGS: Bones: No fractures or dislocations to the T1 level. The lateral masses of C1 appear intact on the odontoid view. No suspicious bony lesions. Cervical spondylosis with multilevel facet arthropathy. Uncovertebral joint osteophytes are present as well. There is trace anterolisthesis of C5 on C6. Soft tissues: No prevertebral soft tissue swelling. IMPRESSION: Cervical spondylosis. Dictated by: Bertrand Padron M.D. on 02/16/2022 at 14:00 Approved by: Bertrand Padron M.D. on 02/16/2022 at 14:02
--- NOTE | 2022-02-16 | DI.RAD.S_ITS ---
PROCEDURE: XR SHOULDER LT MIN 2V INDICATIONS: Left arm pain, carvical radiculopathy TECHNIQUE: 3 views of the shoulder were acquired. COMPARISON: [facility], , SHOULDER MINIMUM 2VIEW RIGHT, 10/20/2007, 11:06. FINDINGS: Bones: No fractures or dislocations. No suspicious bony lesions. Visualized ribs appear intact. Mild glenohumeral joint degenerative change. Soft tissues: No suspicious soft tissue calcifications. IMPRESSION: Mild glenohumeral joint degenerative change. No evidence acute bony abnormality of the left shoulder. If clinical suspicion and/or symptoms persist, further assessment with repeat plain films, or advanced imaging (e.g., CT, MRI, or bone scan) may be helpful for further assessment. Dictated by: Bertrand Padron M.D. on 02/16/2022 at 14:02 Approved by: Bertrand Padron M.D. on 02/16/2022 at 14:09
== END ==
PROVIDERS: PCP Physician Assistant; Referring Provider Physician Assistant; Visit Provider Physician Assistant
DX: M47.22 Other spondylosis with radiculopathy, cervical region (principal); M79.602 Pain in left arm
CPT/HCPCS: 72040; 73030

== ENCOUNTER → 2023-12-17 09:53 | Outpatient (CLI) | payer MEDICARE, OTHER, SELFPAY ==
--- NOTE | 2023-12-17 09:55 | DI.RAD.S_ITS ---
PROCEDURE: XR CHEST 2V INDICATIONS: Bronchitis, not specified as acute or chronic TECHNIQUE: 2 views of the chest were acquired. COMPARISON: None. FINDINGS: Surgical changes and devices: None. Lungs and pleura: Bibasilar consolidation. Mediastinum: Mediastinal contours are normal. Heart size is normal. Bones and chest wall: No suspicious bony abnormalities. Soft tissues appear unremarkable. IMPRESSION: Bibasilar consolidation, could represent multifocal pneumonia or aspiration pneumonia. Correlate with risk factors and consider speech pathology referral. Dictated by: Jensen Encarnacion M.D. on 12/17/2023 at 10:57 Approved by: Jensen Encarnacion M.D. on 12/17/2023 at 10:58
== END ==
LOC: RAD 09:55
PROVIDERS: PCP Physician Assistant; Referring Provider Internal Medicine; Visit Provider Internal Medicine
DX: J40 Bronchitis, not specified as acute or chronic (principal)
CPT/HCPCS: 71046

== ENCOUNTER → 2024-08-04 17:50 | Outpatient (CLI) | payer MEDICARE, OTHER, SELFPAY ==
--- NOTE | 2024-08-04 17:51 | DI.RAD.S_ITS ---
PROCEDURE: XR CHEST 2V INDICATIONS: wheezing and crackles L sided TECHNIQUE: 2 views of the chest were acquired. COMPARISON: [facility], CR, XR CHEST 2V, 12/17/2023, 9:55. FINDINGS: Surgical changes and devices: None. Lungs and pleura: Minimal opacity at the lung bases. No pleural effusions or pneumothorax. Mediastinum: Mediastinal contours are normal. Heart size is enlarged. Bones and chest wall: No suspicious bony abnormalities. Soft tissues appear unremarkable. IMPRESSION: Minimal opacity at the lung bases. This could represent atelectasis or scarring. Less likely pneumonia. Dictated by: Bill Sousa M.D. on 08/04/2024 at 19:45 Approved by: Bill Sousa M.D. on 08/04/2024 at 19:46
== END ==
PROVIDERS: PCP Physician Assistant; Referring Provider Chiropractor; Visit Provider Chiropractor
DX: J18.9 Pneumonia, unspecified organism (principal); I51.7 Cardiomegaly
CPT/HCPCS: 71046

== ENCOUNTER 2024-09-01 18:13 | Emergency (ER) | payer MEDICARE, OTHER, SELFPAY ==
[2024-09-01 18:18] VITALS: BP 176/95; PULSE 70; RESP 18; TEMP 36.6; O2SAT 97; BMI 30.8
--- NOTE | 2024-09-01 18:30 | DI.RAD.S_ITS ---
PROCEDURE: XR ELBOW LT MIN 3V INDICATIONS: swelling/multiple falls TECHNIQUE: 3 views of the elbow were acquired. COMPARISON: None. FINDINGS: Bones: No fractures or dislocations. No suspicious bony lesions. Soft tissues: No elbow joint effusion. No suspicious soft tissue calcifications. IMPRESSION: No acute bony abnormality or significant joint effusion. Dictated by: Fili Monterroso M.D. on 09/01/2024 at 19:09 Approved by: Fili Monterroso M.D. on 09/01/2024 at 19:10
--- NOTE | 2024-09-01 18:30 | DI.RAD.S_ITS ---
PROCEDURE: XR WRIST LT MIN 3V INDICATIONS: swelling/multiple falls TECHNIQUE: 3 views of the wrist were acquired. COMPARISON: None. FINDINGS: Bones: There is anatomic alignment. There is cortical disruption along the lateral aspect of the radial styloid. No displaced osseous fragment. Ypmy-fe-ooxsfaoe degenerative disease in the 1st CMC joint. Moderate osteopenia.. Soft tissues: No suspicious soft tissue calcifications. IMPRESSION: Findings suggest the possibility of acute nondisplaced fracture of the radial styloid, please correlate for point tenderness at this level. Dictated by: Fili Monterroso M.D. on 09/01/2024 at 19:10 Approved by: Fili Monterroso M.D. on 09/01/2024 at 19:12
--- NOTE | 2024-09-01 18:36 | DI.CT.S_ITS ---
PROCEDURE: CT HEAD/BRAIN WO CON INDICATIONS: multiple falls, hit head, no thinners TECHNIQUE: Noncontrast 4.5 mm thick angled axial sections acquired from the foramen magnum to the vertex, with coronal and sagittal reformats. For radiation dose reduction, the following was used: automated exposure control, adjustment of mA and/or kV according to patient size. COMPARISON: [facility], CT, HEAD WITHOUT CONTRAST, 04/04/2016, 8:53. FINDINGS: Image quality: Diagnostic. CSF spaces: Stable ventriculomegaly, with some ballooning of the temporal horns. Brain: Stable area of encephalomalacia in the right anterior frontal region. No new focal lesion seen. No mass or mass effect. No intra or extra-axial collections seen. Skull and face: Calvarium and visualized facial bones are intact, without suspicious lesions. Sinuses: Visualized sinuses and mastoids are clear. IMPRESSION: 1. No acute intracranial abnormality seen. 2. Stable ventriculomegaly as well as area of encephalomalacia in the right anterior frontal lobe. Dictated by: Fili Monterroso M.D. on 09/01/2024 at 19:12 Approved by: Fili Monterroso M.D. on 09/01/2024 at 19:15
--- NOTE | 2024-09-01 18:36 | DI.CT.S_ITS ---
PROCEDURE: CT CERVICAL SPINE WO CON INDICATIONS: multiple falls/hit head TECHNIQUE: Noncontrast 3 mm thick sections acquired from the skull base to the T4 level. Sagittal and coronal reformats were then constructed. For radiation dose reduction, the following was used: automated exposure control, adjustment of mA and/or kV according to patient size. COMPARISON: None. FINDINGS: Image quality: Excellent. Bones: There is partial loss of cervical lordosis. There is also grade 1 C5 anterolisthesis. There is moderate degenerative disc disease in the C3-C7 region. There is also multilevel uncinate process and facet arthropathy with probable moderate bilateral foraminal narrowing in the midcervical region, no severe central stenosis seen. Soft tissues: Prevertebral soft tissues are normal in thickness. No paravertebral hematomas. No apical pneumothoraces. IMPRESSION: Degenerative changes as well as spondylolisthesis and partial loss of cervical lordosis, no acute traumatic osseous lesion seen. Dictated by: Fili Monterroso M.D. on 09/01/2024 at 19:15 Approved by: Fili Monterroso M.D. on 09/01/2024 at 19:22
--- NOTE | 2024-09-01 18:50 | ED.FALL ---
HPI - Fall General Chief Complaint: Fall Stated Complaint: Fall, Head/R Arm/ Back Pain Time Seen by Provider: 09/01/24 18:34 Source: patient Mode of arrival: Ambulatory History of Present Illness HPI Narrative: 83-year-old male with history of hydrocephalus with remote DIRECTOR ORANGE shunt 30 years ago placed [facility], became infected and was withdrawn, recent weeks has had multiple falls, had visit [facility] 4 weeks ago with reported CT scan of the brain showing hydrocephalus what was discharged home with follow up in Neurology. Saw Neurology Dr. Roach at [facility], who suggested follow up with Neurosurgery Dr. Mckinney, no consultation has yet been performed. Over the last 2 weeks patient has had 5 falls, some mechanical, some not mechanical, feels more clumsy than usual. No focal weakness to face arm or leg. No focal numbness to face arm or leg. No incontinence to urine or stool. Three days ago was his last fall, caught his foot on a step, fell backwards hit the back of his head. Not seen for that visit. Has persisting left wrist and elbow pain from that fall. Related Data Home Medications ?Medication ?Instructions ?Recorded ?Confirmed aspirin 81 mg tablet,delayed 81 mg PO HS ##0 12/07/15 08/04/24 release apixaban 2.5 mg tablet (Eliquis) 2.5 mg PO BID 08/04/24 08/04/24 apixaban 2.5 mg tablet (Eliquis) 2.5 mg PO BID 08/04/24 08/04/24 empagliflozin 10 mg tablet 10 mg PO DAILY 08/04/24 08/04/24 (Jardiance) furosemide 40 mg tablet (Lasix) 40 mg PO DAILY 08/04/24 08/04/24 losartan 25 mg tablet 25 mg PO DAILY 08/04/24 08/04/24 metoprolol tartrate 25 mg tablet 25 mg PO DAILY 08/04/24 08/04/24 tramadol 50 mg tablet 50 mg PO Q6-8H PRN 08/04/24 08/04/24 trospium 20 mg tablet mg PO 08/04/24 08/04/24 Previous Rx's ?Medication ?Instructions ?Recorded azithromycin 250 mg tablet See Rx Instructions PO .COMPLEX #6 08/04/24 tabs Allergies Allergy/AdvReac Type Severity Reaction Status Date / Time No Known Drug Allergies Allergy Verified 09/01/24 18:19 Patient History Medical History Atrial fibrillation Diabetes Hypertension Social History Smoking Status: Never smoker Smoking Status: Never smoker Exam Narrative Exam Narrative: GENERAL: Well-developed patient, in mild distress. HEAD: Atraumatic. Normocephalic. EYES: Pupils equal round and reactive. Extraocular motions intact. No scleral icterus. No injection or drainage. ENT: Nose without bleeding, purulent drainage. Throat without erythema, tonsillar hypertrophy or exudate. Airway patent. NECK: Trachea midline. Non tender CARDIOVASCULAR: Regular rate and rhythm without murmurs, gallops, or rubs. RESPIRATORY: Clear to auscultation. Breath sounds equal bilaterally. No wheezes, rales, or rhonchi. GASTROINTESTINAL: Abdomen soft, non-tender, nondistended. EXTREMITIES: Tenderness to left wrist with no gross deformity, no tenderness of significance left elbow. BACK: Nontender without deformity or crepitance. No flank tenderness. NEURO: AOx3. Motor functions grossly nonfocal. SKIN: No rash or erythema of visible areas Initial Vital Signs Initial Vital Signs: Vital Signs Temperature 97.9 F 09/01/24 18:18 Pulse Rate 70 09/01/24 18:18 Respiratory Rate 18 09/01/24 18:18 Blood Pressure 176/95 H 09/01/24 18:18 Pulse Oximetry 97 09/01/24 18:18 Oxygen Delivery Method Room Air 09/01/24 18:18 Course Orders Ordered: Discontinued Medications Tramadol HCl (Tramadol 50 Mg Prepack) [facility] Stop: 09/01/24 19:54 Last Admin: 09/01/24 20:23 Dose: 1 bottle Documented By: [facility] Vital Signs Vital signs: Vital Signs - 8 hr 09/01/24 18:18 Temperature 97.9 F Pulse Rate 70 Respiratory Rate 18 Blood Pressure 176/95 H Pulse Oximetry 97 Oxygen Delivery Method Room Air MDM - Fall Imaging Data CT scan - head: Radiologist's Impression: [address] [address] [address] Scan Report Signed Patient: Maximo Cote MR#: [id number] : 1940 Acct:[id number] Age/Sex: 83 / M Date of Service: 09/01/24 Loc: ED Accession Number: [id number] Procedure: CT head/brain wo con Ordering Provider: George Barron MD PROCEDURE: CT HEAD/BRAIN WO CON INDICATIONS: multiple falls, hit head, no thinners TECHNIQUE: Noncontrast 4.5 mm thick angled axial sections acquired from the foramen magnum to the vertex, with coronal and sagittal reformats. For radiation dose reduction, the following was used: automated exposure control, adjustment of mA and/or kV according to patient size. COMPARISON: [facility], CT, HEAD WITHOUT CONTRAST, 04/04/2016, 8:53. FINDINGS: Image quality: Diagnostic. CSF spaces: Stable ventriculomegaly, with some ballooning of the temporal horns. Brain: Stable area of encephalomalacia in the right anterior frontal region. No new focal lesion seen. No mass or mass effect. No intra or extra-axial collections seen. Skull and face: Calvarium and visualized facial bones are intact, without suspicious lesions. Sinuses: Visualized sinuses and mastoids are clear. IMPRESSION: 1. No acute intracranial abnormality seen. 2. Stable ventriculomegaly as well as area of encephalomalacia in the right anterior frontal lobe. Dictated by: Fili Monterroso M.D. on 09/01/2024 at 19:12 Approved by: Fili Monterroso M.D. on 09/01/2024 at 19:15 CT - cervical spine: Radiologist's Impression: [place] [address] CT Scan Report Signed Patient: Maximo Cote MR#: [id number] : 1940 Acct:[id number] Age/Sex: 83 / M Date of Service: 09/01/24 Loc: ED Accession Number: [id number] Procedure: CT cervical spine wo con Ordering Provider: George Barron MD PROCEDURE: CT CERVICAL SPINE WO CON INDICATIONS: multiple falls/hit head TECHNIQUE: Noncontrast 3 mm thick sections acquired from the skull base to the T4 level. Sagittal and coronal reformats were then constructed. For radiation dose reduction, the following was used: automated exposure control, adjustment of mA and/or kV according to patient size. COMPARISON: None. FINDINGS: Image quality: Excellent. Bones: There is partial loss of cervical lordosis. There is also grade 1 C5 anterolisthesis. There is moderate degenerative disc disease in the C3-C7 region. There is also multilevel uncinate process and facet arthropathy with probable moderate bilateral foraminal narrowing in the midcervical region, no severe central stenosis seen. Soft tissues: Prevertebral soft tissues are normal in thickness. No paravertebral hematomas. No apical pneumothoraces. IMPRESSION: Degenerative changes as well as spondylolisthesis and partial loss of cervical lordosis, no acute traumatic osseous lesion seen. Dictated by: Fili Monterroso M.D. on 09/01/2024 at 19:15 Approved by: Fili Monterroso M.D. on 09/01/2024 at 19:22 Extremity x-ray #1: Radiologist's Impression: [address] [address] XRay Report Signed Patient: Maximo Cote MR#: [id number] : 1940 Acct:[id number] Age/Sex: 83 / M Date of Service: 09/01/24 Loc: ED Accession Number: [id number] Procedure: XR elbow LT min 3V Ordering Provider: George Barron MD PROCEDURE: XR ELBOW LT MIN 3V INDICATIONS: swelling/multiple falls TECHNIQUE: 3 views of the elbow were acquired. COMPARISON: None. FINDINGS: Bones: No fractures or dislocations. No suspicious bony lesions. Soft tissues: No elbow joint effusion. No suspicious soft tissue calcifications. IMPRESSION: No acute bony abnormality or significant joint effusion. Dictated by: Fili Monterroso M.D. on 09/01/2024 at 19:09 Approved by: Fili Monterroso M.D. on 09/01/2024 at 19:10 Extremity x-ray #2: Radiologist's Impression: [address] [address] XRay Report Signed Patient: Maximo Cote MR#: [id number] : 1940 Acct:[id number] Age/Sex: 83 / M Date of Service: 09/01/24 Loc: ED Accession Number: [id number] Procedure: XR wrist LT min 3V Ordering Provider: Barron,George M MD PROCEDURE: XR WRIST LT MIN 3V INDICATIONS: swelling/multiple falls TECHNIQUE: 3 views of the wrist were acquired. COMPARISON: None. FINDINGS: Bones: There is anatomic alignment. There is cortical disruption along the lateral aspect of the radial styloid. No displaced osseous fragment. Beki-hr-qkeextlu degenerative disease in the 1st CMC joint. Moderate osteopenia.. Soft tissues: No suspicious soft tissue calcifications. IMPRESSION: Findings suggest the possibility of acute nondisplaced fracture of the radial styloid, please correlate for point tenderness at this level. Dictated by: Fili Monterroso M.D. on 09/01/2024 at 19:10 Approved by: Fili Monterroso M.D. on 09/01/2024 at 19:12 [facility] Narrative Medical decision making narrative: 83-year-old male with history of hydrocephalus with previous remote DIRECTOR ORANGE shunt removed 30 years ago from infection complications, walks with a rolling walker as baseline, recent falls, head CT scan one month ago [place] showed hydrocephalus, subsequently saw Neurology [facility] who recommend seeing Neurosurgery, for possible management of hydrocephalus without necessarily replacing DIRECTOR [employer] shunt, with serial LPs or some other strategy. Awaiting neurosurgery consultation with Dr. Mckinney. Having more frequent falls over the last 2 weeks. Last fall 3 days ago, fell backwards, struck head, takes Eliquis, has persisting left wrist and left elbow pain. CT head noncontrast. Hydrocephalus noted, stable from previous comparison. See radiology report. CT cervical spine. DJD changes noted. See radiology report. X-ray left elbow, no fracture or dislocation. See radiology report. X-ray left wrist, possible fracture radial styloid. See radiology report. Placed in left sugar-tong splint with sling. Good cap refill of distal fingers post splint placement by RN, placed in sling. Follow up with Orthopedic surgery, contact information given for [facility]. Follow up with Neurosurgery Dr. Mckinney as planned, consider calling office of PCP and [facility] Neurology to expedite Neurosurgery outpatient referral. Discharge Plan Departure Patient Disposition: Home Clinical Impression: Fracture of left distal radius, Contusion of left elbow, Hydrocephalus, Falls frequently Activity Restrictions/Additional Instructions: History of falls, remote history of hydrocephalus treated with DIRECTOR ORANGE shunt 30 years ago that was removed after complications of infection, stable hydrocephalus since that time, no subsequent neurosurgical interventions, however recent imaging 1 month ago reported with hydrocephalus noted, follow up with [facility] Neurology, awaiting consultation with Dr. Mckinney of Neurosurgery for possible lumbar puncture drainage procedures or some other approach to therapy for recurrent/persistent hydrocephalus. Ongoing recent falls. Eliquis chronic blood thinner medication noted. Last fall 3 days ago, with persisting left wrist and elbow pain. X-ray of the left elbow without fractures obvious, no dislocation. X-ray left wrist area with nondisplaced fracture of the distal radius. Splint and sling placed left upper extremity. Follow up with Orthopedic surgery later this week. Likely we will be casted, no surgical intervention anticipated. CT cervical spine showed degenerative changes, no neck fractures obvious. CT head scanning done showed ventriculomegaly that is stable from 2017 available comparison study, per Radiology report. No intracranial hemorrhage noted on CT brain imaging. Follow up with your neurosurgeon Dr. Mckinney as planned. Consider calling your neurologist and your primary care doctor tomorrow morning to try to exudate referrals for neurosurgical consultation. Prescriptions: No Action Eliquis 2.5 mg tablet 2.5 mg PO BID trospium 20 mg tablet PO Eliquis 2.5 mg tablet 2.5 mg PO BID Jardiance 10 mg tablet 10 mg PO DAILY furosemide [Lasix] 40 mg tablet 40 mg PO DAILY losartan 25 mg tablet 25 mg PO DAILY tramadol 50 mg tablet 50 mg PO Q6-8H PRN metoprolol tartrate 25 mg tablet 25 mg PO DAILY azithromycin 250 mg tablet See Rx Instructions PO .COMPLEX Qty: 6 0RF Rx Instructions: For 250 mg dose pack: take 500 mg today (day 1), then 250 mg for 4 days (days 2-5) PO aspirin 81 MG tablet,delayed release (DR/EC) 81 mg PO HS Qty: 0 Referrals: [facility] [Provider Group] James Boyer MD [Physician, Orthopedic Surgery] Deedee Fitch PA-C [Primary Care Provider, Medical] Stand Alone Forms: Patient Portal/API
[2024-09-01 20:22] VITALS: BP 108/79; PULSE 75; RESP 18; O2SAT 95
[2024-09-01] MEDS: TRAMADOL 50 MG PREPACK 1 BOTTLE MISC (20:23)
== END 2024-09-01 20:46 | disposition home or self-care (01) ==
PROVIDERS: Emergency Provider Emergency Medicine; PCP Physician Assistant
DX: S52.512A Displaced fracture of left radial styloid process, initial encounter for closed fracture (principal); S50.02XA Contusion of left elbow, initial encounter; G91.9 Hydrocephalus, unspecified; R29.6 Repeated falls; W01.10XA Fall on same level from slipping, tripping and stumbling with subsequent striking against unspecified object, initial encounter; Z98.2 Presence of cerebrospinal fluid drainage device; Z79.01 Long term (current) use of anticoagulants
CPT/HCPCS: 29105; 70450; 72125; 73080; 73110; 99283; 99284

== ENCOUNTER → 2025-01-15 16:10 | Outpatient (CLI) | payer MEDICARE, OTHER, SELFPAY ==
--- NOTE | 2025-01-15 | DI.RAD.S_ITS ---
PROCEDURE: XR KNEE RT 4V
--- NOTE | 2025-01-15 16:14 | DI.RAD.S_ITS ---
PROCEDURE: XR KNEE LT 4V
== END ==
PROVIDERS: PCP Physician Assistant; Referring Provider Family Medicine; Visit Provider Family Medicine
DX: M17.0 Bilateral primary osteoarthritis of knee (principal); M25.561 Pain in right knee
CPT/HCPCS: 73564